=== PATIENT | male | born 1965 | race Caucasian/White ===

== ENCOUNTER 2020-03-10 15:53 | Emergency (ER) | payer MEDICAID, SELFPAY ==
[2020-03-10 15:57] VITALS: BP 133/81; RESP 18; TEMP 36.9; O2SAT 96; BMI 23.0
--- NOTE | 2020-03-10 16:05 | W.ED.GENADLT ---
Documented by User: KENNY Desir 03/10/20 17:04 HPI - General Adult General: Chief complaint: General Medical Stated complaint: LETHARGIC/ DOESN'T FEEL WELL Time Seen by Provider: 03/10/20 16:04 Source: patient Mode of arrival: ambulatory Limitations: no limitations History of Present Illness: HPI narrative: Patient comes in today for complaints of malaise. Patient states that he woke up this morning and he was not feeling well so he drank 2 beers and it did not help him feel any better. Patient does admit that he is a chronic drinker. Patient reports that he does not have much health problems but has had injuries to his back and his left leg. Patient reports that generally when he does not feel well he will drink beer feel better and go on. 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 Patient also reports that he has been bitten by several ticks. Patient appears well. Patient appears in no pain. Patient denies any pain or discomfort. Patient reports that he has had a history of stroke. Associated symptoms: Reports malaise Review of Systems General: Reports: 10 or more systems reviewed and unremarkable except in HPI and below Const: Reports: malaise PFSH ED PFSH: Social History Smoking and tobacco status: current every day smoker Physical Exam Const: COMMON NORMALS: no acute distress and patient oriented x3 GENERAL APPEARANCE: cooperative HENMT: COMMON NORMALS: normocephalic and Normal external nose present HEAD & SCALP: normal to inspection and normocephalic NOSE: Normal external nose present MOUTH: Normal oral and palatal mucosa present Eye: GENERAL EYE: appearance normal, both eyes and all related structures Neck/C-Spine: COMMON NORMALS: full ROM Lymph: LYMPHATIC: no lymphadenopathy noted Chest: COMMONS NORMALS: normal inspection of the chest Resp: COMMON NORMALS: normal respiratory effort EFFORT & INSPECTION: Yes able to speak in complete sentences Cardio: COMMON NORMALS: regular rate and regular rhythm RATE: regular rate RHYTHM: regular rhythm GI: COMMON NORMALS: non-tender : COMMON NORMALS: Yes no CVA tenderness BLADDER/KIDNEY EXAM: Yes no CVA tenderness Back/Pelvis: COMMON NORMALS: no CVA tenderness and thoracic and lumbar spine normal to inspection Extremity: COMMON NORMALS: normal to inspection Neuro: COMMON NORMALS: patient oriented x3 and moves all extremities Psych: COMMON NORMALS: mental status grossly normal and cooperative Skin: COMMON NORMALS: no rashes or lesions noted GENERAL SKIN EXAM: no rashes or lesions noted Course ED course: 1700, reviewed ETIFFANY Owens, agreed to assume care of patient. wjw Vital Signs: Vital signs: Vital Signs Temperature 98.5 F 03/10/20 15:57 Pulse Rate 92 03/10/20 19:06 Respiratory Rate 18 03/10/20 19:06 Blood Pressure 162/95 03/10/20 19:06 Pulse Oximetry 97 03/10/20 19:06 [facility] - General Adult Lab Data: Labs: Lab Results 03/10/20 03/10/20 03/10/20 Range/Units 15:52 15:52 16:36 WBC 6.9 (4.0-10.0) 10^3/ uL RBC 5.04 (4.1-5.3) 10^6/u L Hgb 15.3 (11.7-16.6) g/dL Hct 46.1 (42.0-52.0) % MCV 91.5 (80-94) fL MCH 30.4 (28.0-34.0) pg MCHC 33.2 (30.0-36.0) g/dL RDW 13.1 (12.1-15.1) % Plt Count 299 (130-400) 10^3/c mm MPV 9.3 (7.4-10.4) fL Neut % (Auto) 36.2 % Lymph % (Auto) 44.4 % Brooks % (Auto) 11.1 % Eos % (Auto) 7.2 % Baso % (Auto) 1.0 % Neut # (Auto) 2.5 (1.8-7.7) 10^3/u L Lymph # (Auto) 3.1 (0.8-4.8) 10^3/u L Brooks # (Auto) 0.8 (0.2-0.9) 10^3/u L Eos # (Auto) 0.5 (0.0-0.8) 10^3/u L Baso # (Auto) 0.1 (0.0-0.1) 10^3/u L Nucleated RBC % (a uto) 0 % Nucleated RBCs # 0.0 /100WBC Sodium 139 (136-145) mmol/L Potassium 4.1 (3.5-5.1) mmol/L Chloride 98 (98-107) mmol/L Carbon Dioxide 22 (22-29) mmol/L Anion Gap 23.1 H (5-19) BUN 7 (6-20) mg/dL Creatinine 0.7 (0.7-1.2) mg/dL GFR Calculation 118.4 (90-130) mL/min Glucose 132 H (65-115) mg/dL Calculated Osmolal ity 286 (285-295) mOsm/k g Lactic Acid (0.5-2.2) mmol/L Calcium 9.2 (8.5-10.5) mg/dL Total Bilirubin 0.3 (0.15-1.2) mg/dL AST 71 H (0-40) U/L ALT 51 H (0-41) U/L Alkaline Phosphata se 77 (40-130) IU/L Ammonia (16-60) umol/L Creatine Kinase 336 H* (39-308) U/L Total Protein 8.2 (6.6-8.7) g/dL Albumin 4.6 (3.5-5.2) g/dL Globulin 3.6 (1.3-4.6) g/dL Urine Color Straw (Yellow) Urine Appearance Clear (CLEAR) Urine pH 5 (5-7) Ur Specific Gravit y 1.010 (1.005-1.030) Urine Protein Neg (Negative) Urine Glucose (UA) Norm (Normal) Urine Ketones Negative (Negative) Urine Blood Neg (Negative) Urine Nitrate Negative (Negative) Urine Bilirubin Neg (NEGATIVE) Urine Urobilinogen Norm (Negative) mg/dL Ur Leukocyte Windy ase Negative (Negative) Urine Opiates Scre en (Negative) ng/mL Ur Barbiturates Sc reen (Negative) ng/mL Ur Phencyclidine S crn (Negative) ng/mL Ur Amphetamines Sc reen (Negative) ng/mL U Benzodiazepines Scrn (Negative) ng/mL Urine Cocaine Scre en (Negative) ng/mL U Marijuana (THC) Screen (Negative) ng/mL Ethyl Alcohol 230 H (0-10) mg/dL 03/10/20 03/10/20 03/10/20 Range/Units 16:36 16:55 16:55 WBC (4.0-10.0) 10^3/ uL RBC (4.1-5.3) 10^6/u L Hgb (11.7-16.6) g/dL Hct (42.0-52.0) % MCV (80-94) fL MCH (28.0-34.0) pg MCHC (30.0-36.0) g/dL RDW (12.1-15.1) % Plt Count (130-400) 10^3/c mm MPV (7.4-10.4) fL Neut % (Auto) % Lymph % (Auto) % Brooks % (Auto) % Eos % (Auto) % Baso % (Auto) % Neut # (Auto) (1.8-7.7) 10^3/u L Lymph # (Auto) (0.8-4.8) 10^3/u L Brooks # (Auto) (0.2-0.9) 10^3/u L Eos # (Auto) (0.0-0.8) 10^3/u L Baso # (Auto) (0.0-0.1) 10^3/u L Nucleated RBC % (a uto) % Nucleated RBCs # /100WBC Sodium (136-145) mmol/L Potassium (3.5-5.1) mmol/L Chloride (98-107) mmol/L Carbon Dioxide (22-29) mmol/L Anion Gap (5-19) BUN (6-20) mg/dL Creatinine (0.7-1.2) mg/dL GFR Calculation (90-130) mL/min Glucose (65-115) mg/dL Calculated Osmolal ity (285-295) mOsm/k g Lactic Acid 1.5 (0.5-2.2) mmol/L Calcium (8.5-10.5) mg/dL Total Bilirubin (0.15-1.2) mg/dL AST (0-40) U/L ALT (0-41) U/L Alkaline Phosphata se (40-130) IU/L Ammonia 32 (16-60) umol/L Creatine Kinase (39-308) U/L Total Protein (6.6-8.7) g/dL Albumin (3.5-5.2) g/dL Globulin (1.3-4.6) g/dL Urine Color (Yellow) Urine Appearance (CLEAR) Urine pH (5-7) Ur Specific Gravit y (1.005-1.030) Urine Protein (Negative) Urine Glucose (UA) (Normal) Urine Ketones (Negative) Urine Blood (Negative) Urine Nitrate (Negative) Urine Bilirubin (NEGATIVE) Urine Urobilinogen (Negative) mg/dL Ur Leukocyte Windy ase (Negative) Urine Opiates Scre en Negative (Negative) ng/mL Ur Barbiturates Sc reen Negative (Negative) ng/mL Ur Phencyclidine S crn Negative (Negative) ng/mL Ur Amphetamines Sc reen Negative (Negative) ng/mL U Benzodiazepines Scrn Negative (Negative) ng/mL Urine Cocaine Scre en Negative (Negative) ng/mL U Marijuana (THC) Screen Positive H (Negative) ng/mL Ethyl Alcohol (0-10) mg/dL Discharge Plan Discharge Patient Disposition: Home, Self-Care Clinical Impression: Malaise and fatigue, Acute dehydration, Chronic alcohol abuse Acute alcohol intoxication Qualifiers: Complication of substance-induced condition: uncomplicated Qualified Code(s): F10.920 - Alcohol use, unspecified with intoxication, uncomplicated Condition: Stable Prescriptions: No Action lisinopril 20 mg Tablet 20 mg PO DAILY RF: 0 ibuprofen 200 mg Tablet 800 mg PO PRN RF: 0 Discharge Orders: Discharge Order (Routine); Ordered 03/10/20 Ordered By: Yessi Rodgers Referrals: Neeraj Benito DO [Primary Care Provider] - Activity Restrictions/Additional Instructions: Please continue to push fluids over the next 48 hours. If you are ready, please seek help for the chronic alcohol abuse. You may return to the emergency department at anytime if you begin feeling worse or began having new/concerning symptoms. Discharge Date/Time: 03/10/20 19:08 Sign Out Sign Out Data: Patient Sign Out occurred on 03/10/20 at 17:07. Patient's care was discussed, and care was transferred from Сергей Tapia to JUVE Mensah. Sign Out Comment: awaiting labs, probably will go home, chronic alcoholic. wjw Last updated by Сергей Tapia FNP at 03/10/20 17:01 Coding Level of Care Code ED Federal Judge for Chg Fwd Exam Comprehensive Documented by User: JUVE Mensah 03/10/20 22:02 HPI - General Adult General: Chief complaint: General Medical Stated complaint: LETHARGIC/ DOESN'T FEEL WELL Time Seen by Provider: 03/10/20 16:04 PFSH ED PFSH: Social History Smoking and tobacco status: current every day smoker Physical Exam Const: COMMON NORMALS: no acute distress, average body habitus, patient oriented x3, no limitations and alert GENERAL APPEARANCE: cooperative ORIENTATION/CONSCIOUSNESS: Yes oriented to person, Yes oriented to place and Yes oriented to time HENMT: COMMON NORMALS: normocephalic and atraumatic HEAD & SCALP: normocephalic and atraumatic Resp: COMMON NORMALS: normal respiratory effort and clear to auscultation bilaterally AUSCULTATION: clear to auscultation bilaterally Cardio: COMMON NORMALS: regular rate and regular rhythm RATE: regular rate RHYTHM: regular rhythm GI: COMMON NORMALS: Normal to inspection, nondistended, normoactive bowel sounds present, Soft to palpation, non-tender, No hepatosplenomegaly present and no masses PALPATION: Yes Soft to palpation and Yes No hepatosplenomegaly present Extremity: COMMON NORMALS: normal to inspection, full ROM, capillary refill normal, no clubbing, cyanosis or edema, no calf tenderness and no pedal edema Neuro: ALINA COMA SCALE: document GCS findings [place] coma scale eye opening: Spontaneous Alina coma scale verbal response: Orientated Alina coma scale motor response: Obey commands [place] coma scale total score: 15 COMMON NORMALS: patient oriented x3, CN's II-XII intact bilaterally, moves all extremities, no focal motor deficits, no sensory deficits noted and gait normal SENSORIUM/ORIENTATION: Yes alert, Yes oriented to person, Yes oriented to place and Yes oriented to time Course Vital Signs: Vital signs: Vital Signs Temperature 98.5 F 03/10/20 15:57 Pulse Rate 92 03/10/20 19:06 Respiratory Rate 18 03/10/20 19:06 Blood Pressure 162/95 03/10/20 19:06 Pulse Oximetry 97 03/10/20 19:06 MDM - General Adult MDM Narrative: Medical decision making narrative: Assumed patient from KENNY Crews. Patient presents to the ED today with a complaint of overall not feeling well. He states he woke up today feeling like this. Patient is an every day fairly heavy drinker. He has no specific complaints. He does not complain of chest pain, shortness of breath, difficulty breathing he has no abdominal pain, nausea, vomiting. 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 Patient's vital signs have been completely stable since arrival. CBC is normal. He has an anion gap of 23.1. He has mildly elevated LFTs which are consistent with his chronic alcohol use. Patient's CPK is mildly elevated at 336. He was given 2 L of fluids for this. UA is normal. UDS positive for marijuana. Patient's alcohol was 230 however he is clinically of sound mind and answering questions appropriately. Patient's EKG shows sinus rhythm without any form of ischemic changes. CXR showing no changes from previous films. Patient is stable for discharge with follow-up with primary care. Return to ED precautions given. By end of visit patient tells me he feels much better. Was requesting food. Was able to eat before calling a taxi home. Lab Data: Labs: Lab Results 03/10/20 03/10/20 03/10/20 Range/Units 15:52 15:52 16:36 WBC 6.9 (4.0-10.0) 10^3/ uL RBC 5.04 (4.1-5.3) 10^6/u L Hgb 15.3 (11.7-16.6) g/dL Hct 46.1 (42.0-52.0) % MCV 91.5 (80-94) fL MCH 30.4 (28.0-34.0) pg MCHC 33.2 (30.0-36.0) g/dL RDW 13.1 (12.1-15.1) % Plt Count 299 (130-400) 10^3/c mm MPV 9.3 (7.4-10.4) fL Neut % (Auto) 36.2 % Lymph % (Auto) 44.4 % Brooks % (Auto) 11.1 % Eos % (Auto) 7.2 % Baso % (Auto) 1.0 % Neut # (Auto) 2.5 (1.8-7.7) 10^3/u L Lymph # (Auto) 3.1 (0.8-4.8) 10^3/u L Brooks # (Auto) 0.8 (0.2-0.9) 10^3/u L Eos # (Auto) 0.5 (0.0-0.8) 10^3/u L Baso # (Auto) 0.1 (0.0-0.1) 10^3/u L Nucleated RBC % (a uto) 0 % Nucleated RBCs # 0.0 /100WBC Sodium 139 (136-145) mmol/L Potassium 4.1 (3.5-5.1) mmol/L Chloride 98 (98-107) mmol/L Carbon Dioxide 22 (22-29) mmol/L Anion Gap 23.1 H (5-19) BUN 7 (6-20) mg/dL Creatinine 0.7 (0.7-1.2) mg/dL GFR Calculation 118.4 (90-130) mL/min Glucose 132 H (65-115) mg/dL Calculated Osmolal ity 286 (285-295) mOsm/k g Lactic Acid (0.5-2.2) mmol/L Calcium 9.2 (8.5-10.5) mg/dL Total Bilirubin 0.3 (0.15-1.2) mg/dL AST 71 H (0-40) U/L ALT 51 H (0-41) U/L Alkaline Phosphata se 77 (40-130) IU/L Ammonia (16-60) umol/L Creatine Kinase 336 H* (39-308) U/L Total Protein 8.2 (6.6-8.7) g/dL Albumin 4.6 (3.5-5.2) g/dL Globulin 3.6 (1.3-4.6) g/dL Urine Color Straw (Yellow) Urine Appearance Clear (CLEAR) Urine pH 5 (5-7) Ur Specific Gravit y 1.010 (1.005-1.030) Urine Protein Neg (Negative) Urine Glucose (UA) Norm (Normal) Urine Ketones Negative (Negative) Urine Blood Neg (Negative) Urine Nitrate Negative (Negative) Urine Bilirubin Neg (NEGATIVE) Urine Urobilinogen Norm (Negative) mg/dL Ur Leukocyte Windy ase Negative (Negative) Urine Opiates Scre en (Negative) ng/mL Ur Barbiturates Sc reen (Negative) ng/mL Ur Phencyclidine S crn (Negative) ng/mL Ur Amphetamines Sc reen (Negative) ng/mL U Benzodiazepines Scrn (Negative) ng/mL Urine Cocaine Scre en (Negative) ng/mL U Marijuana (THC) Screen (Negative) ng/mL Ethyl Alcohol 230 H (0-10) mg/dL 03/10/20 03/10/20 03/10/20 Range/Units 16:36 16:55 16:55 WBC (4.0-10.0) 10^3/ uL RBC (4.1-5.3) 10^6/u L Hgb (11.7-16.6) g/dL Hct (42.0-52.0) % MCV (80-94) fL MCH (28.0-34.0) pg MCHC (30.0-36.0) g/dL RDW (12.1-15.1) % Plt Count (130-400) 10^3/c mm MPV (7.4-10.4) fL Neut % (Auto) % Lymph % (Auto) % Brooks % (Auto) % Eos % (Auto) % Baso % (Auto) % Neut # (Auto) (1.8-7.7) 10^3/u L Lymph # (Auto) (0.8-4.8) 10^3/u L Brooks # (Auto) (0.2-0.9) 10^3/u L Eos # (Auto) (0.0-0.8) 10^3/u L Baso # (Auto) (0.0-0.1) 10^3/u L Nucleated RBC % (a uto) % Nucleated RBCs # /100WBC Sodium (136-145) mmol/L Potassium (3.5-5.1) mmol/L Chloride (98-107) mmol/L Carbon Dioxide (22-29) mmol/L Anion Gap (5-19) BUN (6-20) mg/dL Creatinine (0.7-1.2) mg/dL GFR Calculation (90-130) mL/min Glucose (65-115) mg/dL Calculated Osmolal ity (285-295) mOsm/k g Lactic Acid 1.5 (0.5-2.2) mmol/L Calcium (8.5-10.5) mg/dL Total Bilirubin (0.15-1.2) mg/dL AST (0-40) U/L ALT (0-41) U/L Alkaline Phosphata se (40-130) IU/L Ammonia 32 (16-60) umol/L Creatine Kinase (39-308) U/L Total Protein (6.6-8.7) g/dL Albumin (3.5-5.2) g/dL Globulin (1.3-4.6) g/dL Urine Color (Yellow) Urine Appearance (CLEAR) Urine pH (5-7) Ur Specific Gravit y (1.005-1.030) Urine Protein (Negative) Urine Glucose (UA) (Normal) Urine Ketones (Negative) Urine Blood (Negative) Urine Nitrate (Negative) Urine Bilirubin (NEGATIVE) Urine Urobilinogen (Negative) mg/dL Ur Leukocyte Windy ase (Negative) Urine Opiates Scre en Negative (Negative) ng/mL Ur Barbiturates Sc reen Negative (Negative) ng/mL Ur Phencyclidine S crn Negative (Negative) ng/mL Ur Amphetamines Sc reen Negative (Negative) ng/mL U Benzodiazepines Scrn Negative (Negative) ng/mL Urine Cocaine Scre en Negative (Negative) ng/mL U Marijuana (THC) Screen Positive H (Negative) ng/mL Ethyl Alcohol (0-10) mg/dL Imaging Data^: CXR: My impression: NAD-no changes from previous films Discharge Plan Discharge Patient Disposition: Home, Self-Care Clinical Impression: Malaise and fatigue, Acute dehydration, Chronic alcohol abuse Acute alcohol intoxication Qualifiers: Complication of substance-induced condition: uncomplicated Qualified Code(s): F10.920 - Alcohol use, unspecified with intoxication, uncomplicated Condition: Stable Prescriptions: No Action lisinopril 20 mg Tablet 20 mg PO DAILY RF: 0 ibuprofen 200 mg Tablet 800 mg PO PRN RF: 0 Discharge Orders: Discharge Order (Routine); Ordered 03/10/20 Ordered By: Yessi Rodgers Referrals: Neeraj Benito, [Primary Care Provider] - Activity Restrictions/Additional Instructions: Please continue to push fluids over the next 48 hours. If you are ready, please seek help for the chronic alcohol abuse. You may return to the emergency department at anytime if you begin feeling worse or began having new/concerning symptoms. Discharge Date/Time: 03/10/20 19:08 Sign Out Sign Out Data: Patient Sign Out occurred on 03/10/20 at 17:07. Patient's care was discussed, and care was transferred from Сергей Tapia to JUVE Mensah. Sign Out Comment: awaiting labs, probably will go home, chronic alcoholic. wjw Last updated by Сергей Tapia FNP at 03/10/20 17:01 Coding Level of Care Code ED Federal Judge for Chg Fwd Exam Comprehensive
[2020-03-10 16:09] VITALS: PULSE 99; RESP 16; O2SAT 96
--- NOTE | 2020-03-10 16:16 | XR_ITS ---
WS: [id number] PORTABLE CHEST HISTORY: malaise COMPARISON: 12/09/2017 Marked pulmonary hyperinflation with emphysema. No pneumonia. No pulmonary nodule. No pleural effusio n or pneumothorax. Cardiac size: Normal. Mediastinum/Aorta: Normal mediastinum. No osseous abnormality seen. XR/XR chest 1V portable [id number] IMPRESSION: Severe chronic emphysema. No pneumonia.
[2020-03-10 16:27] LABS: Basophils # 0.1 10^3/uL (0.0-0.1); Eosinophils # 0.5 10^3/uL (0.0-0.8); Eosinophils % 7.2 %; Hematocrit 46.1 % (42.0-52.0); Hemoglobin 15.3 g/dL (11.7-16.6); Lymphocytes # 3.1 10^3/uL (0.8-4.8); Lymphocytes % 44.4 %; Mean Corpuscular HGB Conc 33.2 g/dL (30.0-36.0); Mean Corpuscular Hemoglobin 30.4 pg (28.0-34.0); Mean Corpuscular Volume 91.5 fL (80-94); Mean Platelet Volume 9.3 fL (7.4-10.4); Monocytes # 0.8 10^3/uL (0.2-0.9); Monocytes % 11.1 %; Neutrophils # 2.5 10^3/uL (1.8-7.7); Neutrophils % 36.2 %; Nucleated Red Blood Cells % 0 %; Platelet Count 299 10^3/cmm (130-400); Red Blood Count 5.04 10^6/uL (4.1-5.3); Red Cell Distribution Width 13.1 % (12.1-15.1); White Blood Count 6.9 10^3/uL (4.0-10.0)
[2020-03-10 16:52] LABS: Alanine Aminotransferase 51 U/L (0-41); Albumin Level 4.6 g/dL (3.5-5.2); Alcohol Level 230 mg/dL (0-10); Alkaline Phosphatase 77 IU/L (40-130); Anion Gap 23.1 (5-19); Aspartate Amino Transferase 71 U/L (0-40); Blood Urea Nitrogen 7 mg/dL (6-20); Calcium 9.2 mg/dL (8.5-10.5); Carbon Dioxide 22 mmol/L (22-29); Chloride 98 mmol/L (98-107); Creatinine Clr Calc Pharmacy 135.1505; Globulin 3.6 g/dL (1.3-4.6); Glomerular Filtration Rate 118.4 mL/min (90-130); Glucose 132 mg/dL (65-115); Osmolality Calculated 286 mOsm/kg (285-295); Potassium 4.1 mmol/L (3.5-5.1); Sodium 139 mmol/L (136-145); Total Bilirubin 0.3 mg/dL (0.15-1.2); Total Protein 8.2 g/dL (6.6-8.7)
[2020-03-10 17:01] VITALS: BP 158/106; PULSE 84; RESP 17; O2SAT 97
[2020-03-10 17:06] LABS: Add Urine Microscopic? NO
[2020-03-10 17:18] LABS: Ammonia 32 umol/L (16-60); Lactic Sepsis W/Reflex 1.5 mmol/L (0.5-2.2)
[2020-03-10] MEDS: sodium chloride 0.9% 1,000 ML 999 ML IV ×2 (17:20→18:17)
[2020-03-10] MEDS: nicotine 21 mg Patch 1 PATCH TRANSDERMA (17:20)
[2020-03-10 17:28] LABS: Bilirubin Urine Neg (NEGATIVE); Blood Urine Neg (Negative); Glucose Urine UA Norm (Normal); Ketones Urine Negative (Negative); Leukocyte Esterase Urine Negative (Negative); Nitrate Urine Negative (Negative); Protein Urine Neg (Negative); Urine Appearance Clear (CLEAR); Urine Color Straw (Yellow); Urobilinogen Urine Norm (Negative); pH Urine 5 (5-7)
[2020-03-10 17:30] LABS: Creatine Phosphokinase 336 U/L (39-308)
--- NOTE | 2020-03-10 17:36 | ECG_ITS ---
[facility] Test Date: 2020-03-10 Pat Name: Hayes Cartagena Department: Room: Gender: Male [employer]: : [id number] Requested By: Yessi Rodgers Order Number: [id number] Javi MD: Laura Billings M.D. Measurements Intervals Nancy Rate: 81 P: 75 CA: 142 QRS: 90 QRSD: 105 T: 70 QT: 387 QTc: 452 Interpretive Statements SINUS RHYTHM Compared to ECG 02/28/2017 14:37:04 Sinus tachycardia no longer present Atrial abnormality no longer present Electronically Signed On 03-10-2020 21:15:02 CDT by Laura Billings M.D. [id number]
[2020-03-10 17:37] LABS: Amphetamines Screen Urine Negative (Negative); Barbiturates Screen Urine Negative (Negative); Benzodiazepines Screen Urine Negative (Negative); Cocaine Screen Urine Negative (Negative); Opiate Screen Urine Negative (Negative); PCP Screen Urine Negative (Negative); THC Screen Urine Positive (Negative)
[2020-03-10] MEDS: LORazepam 2 mg/mL INJ 1 mL 1 MG IVP (18:17)
[2020-03-10] MEDS: ondansetron 2 mg/ML SDV 2 mL 4 MG IVP (18:17)
--- NOTE | 2020-03-10 18:58 | ED_ITS ---
HPI - Extremity Injury (Lower) General: Chief Complaint: General Medical Stated Complaint: LETHARGIC/ DOESN'T FEEL WELL Time Seen by Provider: 03/10/20 16:04 Source: patient Mode of arrival: ambulatory Limitations: no limitations PFSH ED PFSH: Social History Smoking and tobacco status: current every day smoker Course Vital Signs: Vital signs: Vital Signs Temperature 98.5 F 03/10/20 15:57 Pulse Rate 84 03/10/20 17:01 Respiratory Rate 17 03/10/20 17:01 Blood Pressure 158/106 03/10/20 17:01 Pulse Oximetry 97 03/10/20 17:01 MDM - Extremity Injury (Lower) Lab Data: Labs: Lab Results 03/10/20 03/10/20 03/10/20 Range/Units 15:52 15:52 16:36 WBC 6.9 (4.0-10.0) 10^3/ uL RBC 5.04 (4.1-5.3) 10^6/u L Hgb 15.3 (11.7-16.6) g/dL Hct 46.1 (42.0-52.0) % MCV 91.5 (80-94) fL MCH 30.4 (28.0-34.0) pg MCHC 33.2 (30.0-36.0) g/dL RDW 13.1 (12.1-15.1) % Plt Count 299 (130-400) 10^3/c mm MPV 9.3 (7.4-10.4) fL Neut % (Auto) 36.2 % Lymph % (Auto) 44.4 % Nicholas % (Auto) 11.1 % Eos % (Auto) 7.2 % Baso % (Auto) 1.0 % Neut # (Auto) 2.5 (1.8-7.7) 10^3/u L Lymph # (Auto) 3.1 (0.8-4.8) 10^3/u L Nicholas # (Auto) 0.8 (0.2-0.9) 10^3/u L Eos # (Auto) 0.5 (0.0-0.8) 10^3/u L Baso # (Auto) 0.1 (0.0-0.1) 10^3/u L Nucleated RBC % (a uto) 0 % Nucleated RBCs # 0.0 /100WBC Sodium 139 (136-145) mmol/L Potassium 4.1 (3.5-5.1) mmol/L Chloride 98 (98-107) mmol/L Carbon Dioxide 22 (22-29) mmol/L Anion Gap 23.1 H (5-19) BUN 7 (6-20) mg/dL Creatinine 0.7 (0.7-1.2) mg/dL GFR Calculation 118.4 (90-130) mL/min Glucose 132 H (65-115) mg/dL Calculated Osmolal ity 286 (285-295) mOsm/k g Lactic Acid (0.5-2.2) mmol/L Calcium 9.2 (8.5-10.5) mg/dL Total Bilirubin 0.3 (0.15-1.2) mg/dL AST 71 H (0-40) U/L ALT 51 H (0-41) U/L Alkaline Phosphata se 77 (40-130) IU/L Ammonia (16-60) umol/L Creatine Kinase 336 H* (39-308) U/L Total Protein 8.2 (6.6-8.7) g/dL Albumin 4.6 (3.5-5.2) g/dL Globulin 3.6 (1.3-4.6) g/dL Urine Color Straw (Yellow) Urine Appearance Clear (CLEAR) Urine pH 5 (5-7) Ur Specific Gravit y 1.010 (1.005-1.030) Urine Protein Neg (Negative) Urine Glucose (UA) Norm (Normal) Urine Ketones Negative (Negative) Urine Blood Neg (Negative) Urine Nitrate Negative (Negative) Urine Bilirubin Neg (NEGATIVE) Urine Urobilinogen Norm (Negative) mg/dL Ur Leukocyte Windy ase Negative (Negative) Urine Opiates Scre en (Negative) ng/mL Ur Barbiturates Sc reen (Negative) ng/mL Ur Phencyclidine S crn (Negative) ng/mL Ur Amphetamines Sc reen (Negative) ng/mL U Benzodiazepines Scrn (Negative) ng/mL Urine Cocaine Scre en (Negative) ng/mL U Marijuana (THC) Screen (Negative) ng/mL Ethyl Alcohol 230 H (0-10) mg/dL 03/10/20 03/10/20 03/10/20 Range/Units 16:36 16:55 16:55 WBC (4.0-10.0) 10^3/ uL RBC (4.1-5.3) 10^6/u L Hgb (11.7-16.6) g/dL Hct (42.0-52.0) % MCV (80-94) fL MCH (28.0-34.0) pg MCHC (30.0-36.0) g/dL RDW (12.1-15.1) % Plt Count (130-400) 10^3/c mm MPV (7.4-10.4) fL Neut % (Auto) % Lymph % (Auto) % Nicholas % (Auto) % Eos % (Auto) % Baso % (Auto) % Neut # (Auto) (1.8-7.7) 10^3/u L Lymph # (Auto) (0.8-4.8) 10^3/u L Nicholas # (Auto) (0.2-0.9) 10^3/u L Eos # (Auto) (0.0-0.8) 10^3/u L Baso # (Auto) (0.0-0.1) 10^3/u L Nucleated RBC % (a uto) % Nucleated RBCs # /100WBC Sodium (136-145) mmol/L Potassium (3.5-5.1) mmol/L Chloride (98-107) mmol/L Carbon Dioxide (22-29) mmol/L Anion Gap (5-19) BUN (6-20) mg/dL Creatinine (0.7-1.2) mg/dL GFR Calculation (90-130) mL/min Glucose (65-115) mg/dL Calculated Osmolal ity (285-295) mOsm/k g Lactic Acid 1.5 (0.5-2.2) mmol/L Calcium (8.5-10.5) mg/dL Total Bilirubin (0.15-1.2) mg/dL AST (0-40) U/L ALT (0-41) U/L Alkaline Phosphata se (40-130) IU/L Ammonia 32 (16-60) umol/L Creatine Kinase (39-308) U/L Total Protein (6.6-8.7) g/dL Albumin (3.5-5.2) g/dL Globulin (1.3-4.6) g/dL Urine Color (Yellow) Urine Appearance (CLEAR) Urine pH (5-7) Ur Specific Gravit y (1.005-1.030) Urine Protein (Negative) Urine Glucose (UA) (Normal) Urine Ketones (Negative) Urine Blood (Negative) Urine Nitrate (Negative) Urine Bilirubin (NEGATIVE) Urine Urobilinogen (Negative) mg/dL Ur Leukocyte Windy ase (Negative) Urine Opiates Scre en Negative (Negative) ng/mL Ur Barbiturates Sc reen Negative (Negative) ng/mL Ur Phencyclidine S crn Negative (Negative) ng/mL Ur Amphetamines Sc reen Negative (Negative) ng/mL U Benzodiazepines Scrn Negative (Negative) ng/mL Urine Cocaine Scre en Negative (Negative) ng/mL U Marijuana (THC) Screen Positive H (Negative) ng/mL Ethyl Alcohol (0-10) mg/dL Discharge Plan Discharge Patient Disposition: Home, Self-Care Clinical Impression: Malaise and fatigue, Acute dehydration, Chronic alcohol abuse Acute alcohol intoxication Qualifiers: Complication of substance-induced condition: uncomplicated Qualified Code(s): F10.920 - Alcohol use, unspecified with intoxication, uncomplicated Condition: Stable Prescriptions: No Action lisinopril 20 mg Tablet 20 mg PO DAILY RF: 0 ibuprofen 200 mg Tablet 800 mg PO PRN RF: 0 Discharge Orders: Discharge Order (Routine); Ordered 03/10/20 Ordered By: Yessi Rodgers Referrals: Neeraj Benito, [Primary Care Provider] - Activity Restrictions/Additional Instructions: Please continue to push fluids over the next 48 hours. If you are ready, please seek help for the chronic alcohol abuse. You may return to the emergency department at anytime if you begin feeling worse or began having new/concerning symptoms. Sign Out Sign Out Data: Patient Sign Out occurred on 03/10/20 at 17:07. Patient's care was discussed, an d care was transferred from Сергей Tapia to JUVE Mensah. Sign Out Comment: awaiting labs, probably will go home, chronic alcoholic. [email or web address] Last updated by Сергей Tapia FNP at 03/10/20 17:01 Coding Level of Care Code ED Application Development Liaison for Bren Arevalo
[2020-03-10 19:06] VITALS: BP 162/95; PULSE 92; RESP 18; O2SAT 97
[2020-03-14 11:56] LABS: Lyme AB Screen <0.90 index
[2020-03-15 17:40] LABS: E. Chaffeensis AB IGG <1:64; E. Chaffeensis AB IGM <1:20
[2020-03-16 16:20] LABS: RMSF IGG DETECTED; RMSF IGM NOT DETECTED
== END 2020-03-10 19:08 | disposition home or self-care (01) ==
PROVIDERS: Nurse Practitioner Family; Emergency Provider Physician Assistant; PCP Family Medicine
DX: R53.81 Other malaise (principal); E86.0 Dehydration; F10.120 Alcohol abuse with intoxication, uncomplicated; Y90.9 Presence of alcohol in blood, level not specified; F17.210 Nicotine dependence, cigarettes, uncomplicated
CPT/HCPCS: 12345; 36415; 71045; 80053; 80306; 80307; 81003; 82140; 82550; 83605; 85025; 86618; 86666; 86757; 93005; 96361; 96374; 96375; 99284; A9270; J2060; J2405; J7030

== ENCOUNTER 2020-04-21 11:59 | Inpatient (IN) | payer MEDICAID, SELFPAY ==
[2020-04-21 12:05] VITALS: BP 158/120; PULSE 119; RESP 18; TEMP 37.1; O2SAT 96; BMI 25.7
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
[2020-04-21 12:46] LABS: Basophils # 0.1 10^3/uL (0.0-0.1); Basophils % 1.2 %; Eosinophils # 0.3 10^3/uL (0.0-0.8); Eosinophils % 4.3 %; Hematocrit 45.4 % (42.0-52.0); Hemoglobin 15.2 g/dL (11.7-16.6); Lymphocytes # 2.3 10^3/uL (0.8-4.8); Lymphocytes % 38.2 %; Mean Corpuscular HGB Conc 33.5 g/dL (30.0-36.0); Mean Corpuscular Hemoglobin 29.9 pg (28.0-34.0); Mean Corpuscular Volume 89.4 fL (80-94); Mean Platelet Volume 8.8 fL (7.4-10.4); Monocytes # 0.7 10^3/uL (0.2-0.9); Monocytes % 10.8 %; Neutrophils # 2.73 10^3/uL (1.8-7.7); Neutrophils % 45.2 %; Nucleated Red Blood Cells % 0 %; Platelet Count 357 10^3/cmm (130-400); Red Blood Count 5.08 10^6/uL (4.1-5.3); Red Cell Distribution Width 14.6 % (12.1-15.1)
[2020-04-21 13:00] LABS: Amphetamines Screen Urine Negative (Negative); Barbiturates Screen Urine Negative (Negative); Benzodiazepines Screen Urine Negative (Negative); Cocaine Screen Urine Negative (Negative); Opiate Screen Urine Negative (Negative); PCP Screen Urine Negative (Negative); THC Screen Urine Positive (Negative)
[2020-04-21] MEDS: LORazepam 2 mg/mL INJ 1 mL IM (13:20)
[2020-04-21] MEDS: nicotine 21 mg Patch 1 PATCH TRANSDERMA (13:20)
[2020-04-21 13:26] LABS: Alanine Aminotransferase 37 U/L (0-41); Albumin Level 4.7 g/dL (3.5-5.2); Alkaline Phosphatase 79 IU/L (40-130); Aspartate Amino Transferase 42 U/L (0-40); Blood Urea Nitrogen 10 mg/dL (6-20); Carbon Dioxide 23 mmol/L (22-29); Chloride 102 mmol/L (98-107); Globulin 3.9 g/dL (1.3-4.6); Glomerular Filtration Rate 101.1 mL/min (90-130); Glucose 107 mg/dL (65-115); Osmolality Calculated 284 mOsm/kg (285-295); Sodium 139 mmol/L (136-145); Total Bilirubin 0.4 mg/dL (0.15-1.2); Total Protein 8.6 g/dL (6.6-8.7)
[2020-04-21 13:35] VITALS: BP 176/113; PULSE 112; RESP 18; O2SAT 98
[2020-04-21 13:52] VITALS: BP 154/105; PULSE 112; RESP 18; TEMP 36.9; O2SAT 97
[2020-04-21 13:56] LABS: Acetaminophen < 5.0 ug/mL (10-30); Salicylate < 0.3 mg/dL (3-10)
[2020-04-21 13:58] LABS: Alcohol Level 325 mg/dL (0-10)
[2020-04-21] MEDS: ondansetron 4 MG Tablet PO ×4 (14:42→20:10)
[2020-04-21 14:44] VITALS: BP 129/85; RESP 18
[2020-04-21] MEDS: lisinopril 20 mg Tablet PO (14:52)
[2020-04-21] MEDS: nicotine 2 mg Gum BUCCAL ×2 (17:03→20:10)
[2020-04-21] MEDS: acetaminophen 325 mg Tablet 650 MG PO (17:55)
[2020-04-21] MEDS: hyDROXYzine 25 mg Capsule 50 MG PO (20:10)
[2020-04-21] MEDS: LORazepam 1 mg Tablet PO (20:10)
[2020-04-21] MEDS: trazodone 50 mg Tablet 100 MG PO (20:11)
--- NOTE | 2020-04-21 20:43 | PC.NURSE ---
Left great toe and first toe painful and appear bruised. The patient does not know how the toes were injured. Received Tylenol for the pain. Also given cold pack.
[2020-04-21 21:00] VITALS: BP 117/65; PULSE 105; RESP 19; TEMP 37.2; O2SAT 94
[2020-04-22] MEDS: acetaminophen 325 mg Tablet 650 MG PO ×2 (05:13→15:28)
[2020-04-22] MEDS: ondansetron 4 MG Tablet PO (05:15)
[2020-04-22 06:00] VITALS: BP 118/85; PULSE 127; RESP 16; TEMP 36.9; O2SAT 94
[2020-04-22] MEDS: multivitamin therapeutic Tablet 1 TAB PO (08:30)
[2020-04-22] MEDS: lisinopril 20 mg Tablet PO (08:30)
[2020-04-22] MEDS: LORazepam 1 mg Tablet PO (08:30)
[2020-04-22] MEDS: folic acid 1 mg Tablet PO (08:30)
[2020-04-22] MEDS: thiamine 100 mg Tablet PO (08:30)
[2020-04-22] MEDS: nicotine 21 mg Patch 1 PATCH TRANSDERMA (08:35)
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
[2020-04-22] MEDS: chlordiazePOXIDE 10 mg Capsule PO ×4 (10:44→20:25)
[2020-04-22 14:00] VITALS: BP 130/73; PULSE 93; RESP 18; TEMP 37.3; O2SAT 96
--- NOTE | 2020-04-22 18:54 | PC.RESP ---
SMOKING CESSATION INFORMATION SENT TO PATIENT.
[2020-04-22] MEDS: LORazepam 2 mg Tablet PO (20:25)
[2020-04-22] MEDS: PARoxetine 20 mg Tablet PO (20:25)
[2020-04-22] MEDS: trazodone 50 mg Tablet 200 MG PO (20:26)
--- NOTE | 2020-04-22 20:27 | PC.NURSE ---
PRN ATIVAN ADMINISTERED ATIVAN 2 MG PO PER CIWA PROTOCOL. CIWA SCORE 12. WILL MONITOR FOR MEDICATION EFFECTIVENESS.
[2020-04-22 22:00] VITALS: BP 136/81; PULSE 71; RESP 20; TEMP 37; O2SAT 98
[2020-04-23] MEDS: nicotine 2 mg Gum BUCCAL ×2 (05:16→23:10)
[2020-04-23] MEDS: acetaminophen 325 mg Tablet 650 MG PO ×4 (05:16→20:50)
[2020-04-23] MEDS: LORazepam 2 mg Tablet PO ×2 (05:16→22:01)
[2020-04-23] MEDS: ondansetron 4 MG Tablet PO (05:16)
[2020-04-23] MEDS: hyDROXYzine 25 mg Capsule 50 MG PO ×2 (05:17→23:28)
[2020-04-23 06:00] VITALS: BP 121/66; PULSE 124; RESP 22; TEMP 36.6; O2SAT 96
--- NOTE | 2020-04-23 06:28 | XRR_ITS ---
PROCEDURE INFORMATION: Exam: XR Right Foot Exam date and time: 04/23/2020 6:51 AM Age: 55 years old Clinical indication: Patient HX: Right foot pain x 4 days, no known injury; Additional info: R/O fracture TECHNIQUE: Imaging protocol: XR Right foot. Views: 1 or 2 views. COMPARISON: No relevant prior studies available. FINDINGS: Bones/joints: Normal. No fracture. Soft tissues: Normal. XR/XR foot RT 2V [id number] IMPRESSION: No acute findings.
[2020-04-23] MEDS: nicotine 21 mg Patch 1 PATCH TRANSDERMA (08:34)
[2020-04-23] MEDS: multivitamin therapeutic Tablet 1 TAB PO (08:36)
[2020-04-23] MEDS: chlordiazePOXIDE 10 mg Capsule PO ×4 (08:36→20:47)
[2020-04-23] MEDS: folic acid 1 mg Tablet PO (08:36)
[2020-04-23] MEDS: lisinopril 20 mg Tablet PO (08:36)
[2020-04-23] MEDS: thiamine 100 mg Tablet PO (08:37)
--- NOTE | 2020-04-23 10:41 | P.PN_ITS ---
Subjective NPU Subjective: Interval history: My foot really hurts. I am not sure where I can go from here. Mental Status Exam MSE Comments: Mental Status Exam: The patient appears in minimal distress. Eye contact is improved. Appearance: hygiene is poor; no gross neurological deficits., gait is unremarkable; AIMS=0 Speech: Speech is of normal rate and rhythm and easily understood. Thought processes: Thought processes are abstract. Judgment is adequate for safety. Associations: intact Psychotic processes: There is no indication of guarding or paranoia. There is no attention to the internal stimuli. Auditory and visual hallucinations are denied. Judgment: Insight is fair. Problem solving skills are adequate for safety. Orientation: The patient is oriented to person, place time and situation. Memory: no deficits noted in immediate, intermediate, or remote spheres. Attention: The patient is alert and interpersonally engaged. Language: Verbalizations are coherent. Fund of knowledge: Fund of knowledge is adequate. Affect/Mood: Affect is consistent with a depressed mood. pt denies suicidal ideation Affective range appropriate. Psychosis: perception unimpaired except through cognitive distortion; reality testing intact. Behavior: Patient Behavior: Cooperative Speech Pattern: Clear Vitals/I&O/Wt Last Vital Signs Temp 97.8 F 04/23/20 06:00 Pulse 124 H 04/23/20 06:00 Resp 22 H 04/23/20 06:00 BP 121/66 04/23/20 06:00 Pulse Ox 96 04/23/20 06:00 Weight last 48 hrs Weight 86.183 kg Data NPU : 04/21/20 12:27 04/21/20 12:27 A&P Additional A&P Information Diagnoses: Major depression?single episode, moderate severity Alcohol intoxication Alcohol dependence Alcohol withdrawal Assessment: Zackery Cartagena is an alcoholic with a current alcohol problem. His mood disorder is likely secondary to his alcohol use disorder. He would benefit of by establishing himself to be sober over a significant period of time. This will require his participation in a formalized rehabilitation program whether inpatient or outpatient. The plan at this time is to get him through the withdrawal. And then assess which type of rehabilitation program in which he will participate. Treatment plan: Due to the psychiatric conditions and treatment listed in the Assessment and Plan - the patient requires continued hospitalization. Will provide a safe and therapeutic environment for patient.. Will continue inpatient treatment to allow for medication adjustment and monitoring. Will continue q15 min safety checks. Patient will be admitted to the adult psychiatric unit and entered into the full array of individual and group therapies as part of that unit protocol. They will be provided 24-hour access to trained psychiatric nursing care and monitoring. Potential benefits and side effects of medications were discussed as well as the time course of expected response to medication changes. Patient is placed on the [facility] alcohol withdrawal protocol. Paxil 20 mg at bedtime will be provided for depression. Hospital day #3: Patient reports that he is tolerating alcohol withdrawal. He is trying to develop plans following discharge. He continues to consider the possibility of rehab but that is only 1 of many choices he may make. He feels that in 2 or 3 met more days he will be through the withdrawal period and will be able to make an appropriate assessment. Plan: Continue weaning from chlordiazepoxide on scheduled dose. X-ray of right foot is pending. Monitor patient's mood, sleep, appetite, and behavior closely. Encourage patient to participate in individual and group therapeutic sessions on the gaines. Estimated length of stay 5 days Involuntary Hold Information 96 Hour Hold: 96 Hour Involuntary Admission: No Attestations NPU Medical Necessity Statement*: Patient will remain in the hospital another 2-4 nights for assessment of medication efficacy and tolerability. Coding Level of Care Code Acute Photographic Enlarger Operator for Bren Arevalo
[2020-04-23 13:43] VITALS: BP 123/71; PULSE 86; RESP 20; TEMP 37.1; O2SAT 95
[2020-04-23] MEDS: trazodone 50 mg Tablet 200 MG PO (20:47)
[2020-04-23] MEDS: PARoxetine 20 mg Tablet PO (20:47)
[2020-04-23 21:27] VITALS: BP 119/80; PULSE 77; RESP 20; TEMP 36.6; O2SAT 96
--- NOTE | 2020-04-23 22:04 | PC.NURSE ---
PRN ATIVAN ATIVAN 2MG PO GIVEN PER CIWA PROTOCOL. CIWA SCORE 12. WILL MONITOR FOR MEDICATION EFFECTIVENESS.
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
[2020-04-24 06:00] VITALS: BP 104/66; PULSE 88; RESP 20; TEMP 36.9; O2SAT 93
[2020-04-24] MEDS: nicotine 2 mg Gum BUCCAL (06:22)
[2020-04-24] MEDS: acetaminophen 325 mg Tablet 650 MG PO ×2 (06:44→11:08)
[2020-04-24] MEDS: folic acid 1 mg Tablet PO (08:21)
[2020-04-24] MEDS: chlordiazePOXIDE 10 mg Capsule PO ×2 (08:21→17:35)
[2020-04-24] MEDS: lisinopril 20 mg Tablet PO (08:21)
[2020-04-24] MEDS: thiamine 100 mg Tablet PO (08:21)
[2020-04-24] MEDS: multivitamin therapeutic Tablet 1 TAB PO (08:21)
--- NOTE | 2020-04-24 09:48 | PM.NPN ---
Subjective NPU Subjective: Interval history: The patient says he is doing a lot better than when he entered the hospital. His CIWA score yesterday was 12, necessitating a 2-milligram dose of lorazepam. Today the nursing staff do not see sufficient symptomatology to necessitate further lorazepam. The patient is focused on his right foot and I review the imaging technology, which is reported as showing no fractures or disruption of the joints. He still hurts in the ball of his right foot. I suggest an outpatient podiatry appointment. He has to leave tomorrow because of probation supervision. Medications: Reviewed: Yes Medication Review Details: Current Medications Acetaminophen (Tylenol) 650 mg PO Q4H PRN PRN Reason: MILD PAIN Last Admin: 04/24/20 06:44 Dose: 650 mg Documented by: Benztropine Mesylate (Cogentin) 1 mg PO BID PRN PRN Reason: Mild Extrapyramidal symptoms Camphor/Menthol/Phenol (Blistex) 1 applic TOPICAL Q1H PRN PRN Reason: DRYNESS Chlordiazepoxide (Librium) 10 mg PO BID [facility] Stop: 04/26/20 08:59 Last Admin: 04/24/20 08:21 Dose: 10 mg Documented by: Diphenhydramine HCl (Benadryl) 50 mg IM ONCE PRN PRN Reason: Severe Extrapyramidal Symptoms Diphenhydramine HCl (Benadryl) 50 mg IM Q4H PRN PRN Reason: Severe Aggression Folic Acid (Folic Acid) 1 mg PO DAILY [facility] Last Admin: 04/24/20 08:21 Dose: 1 mg Documented by: Haloperidol (Haldol) 5 mg PO Q4H PRN PRN Reason: AGITATION Haloperidol Lactate (Haldol Inj) 5 mg IM Q4H PRN PRN Reason: Severe Aggression Hydroxyzine Pamoate (Vistaril) 50 mg PO Q6H PRN PRN Reason: ANXIETY Last Admin: 04/23/20 23:28 Dose: 50 mg Documented by: Lisinopril (Prinivil) 20 mg PO DAILY [facility] Last Admin: 04/24/20 08:21 Dose: 20 mg Documented by: Loperamide HCl (Imodium Capsule) 2 mg PO Q6H PRN PRN Reason: DIARRHEA Lorazepam (Ativan) 2 mg IM Q4H PRN PRN Reason: Severe Aggression Lorazepam (Ativan) 2 mg PO PROTOCOL PRN; Protocol PRN Reason: WITHDRAWAL Last Admin: 04/23/20 22:01 Dose: 2 mg Documented by: Multivitamins Therapeutic (Multivitamin Tab) 1 tab PO DAILY [facility] Last Admin: 04/24/20 08:21 Dose: 1 tab Documented by: Nicotine (Nicoderm 21 Mg Patch) 1 patch TRANSDERMA DAILY PRN PRN Reason: NICOTINE WITHDRAWAL Last Admin: 04/23/20 08:34 Dose: 1 patch Documented by: Nicotine Polacrilex (Nicorette) 2 mg BUCCAL Q2H PRN PRN Reason: NICOTINE WITHDRAWAL Last Admin: 04/24/20 06:22 Dose: 2 mg Documented by: Olanzapine (Zyprexa Zydis) 5 mg PO Q4H PRN PRN Reason: Agitation/Psychosis Ondansetron HCl (Zofran) 4 mg PO Q6H PRN PRN Reason: NAUSEA AND VOMITING Last Admin: 04/23/20 05:16 Dose: 4 mg Documented by: Paroxetine HCl (Paxil) 20 mg PO BEDTIME [facility] Last Admin: 04/23/20 20:47 Dose: 20 mg Documented by: Thiamine Mononitrate (Vitamin B-1) 100 mg PO DAILY [facility] Last Admin: 04/24/20 08:21 Dose: 100 mg Documented by: Trazodone HCl (Desyrel) 200 mg PO BEDTIME [facility] Last Admin: 04/23/20 20:47 Dose: 200 mg Documented by: Mental Status Exam MSE Comments: This is a 55-year-old male who seems younger than his stated age. He is disheveled and hygiene is have a weathered soul. Mood is disgruntled and affect is appropriate to his mood. Thought processes are integrated and free of any racing, blocking or looseness of association. There is no evidence of psychosis, such as but not limited to hallucinations, delusions and ideas of reference. Cognitive functions are adequate for safety. Insight and judgment are fragile. He is after all a long-term alcoholic. Vitals/I&O/Wt Last Vital Signs Temp 98.5 F 04/24/20 06:00 Pulse 88 04/24/20 06:00 Resp 20 H 04/24/20 06:00 BP 104/66 04/24/20 06:00 Pulse Ox 93 04/24/20 06:00 Weight last 48 hrs Weight 264 lb 8 oz Data NPU : 04/21/20 12:27 04/21/20 12:27 A&P Assessment and plan (1) Depression: Patient is currently on affordable and appropriate pharmacotherapy. If he can stabilize as a sober person, I believe his depression will resolve very quickly. Status: Acute Qualifiers: Depression Type: unspecified Qualified Code(s): F32.9 - Major depressive disorder, single episode, unspecified (2) Alcohol abuse: Referral to appropriate rehab if the patient will comply. Status: Acute Involuntary Hold Information 96 Hour Hold: 96 Hour Involuntary Admission: No Attestations NPU Medical Necessity Statement*: Anticipate discharge tomorrow necessitated by probation supervision issues. Time Spent in Patient Care: Greater than 35 minutes (>than 50% of time spent in counselling and/or direct pt care on unit). Coding Level of Care Code Acute Medical Receptionist Biller for Bren Arevalo Diagnoses Depression F32.9 Depression Type: unspecified Alcohol abuse F10.10
[2020-04-24] MEDS: nicotine 21 mg Patch 1 PATCH TRANSDERMA (10:40)
[2020-04-24 13:52] VITALS: BP 109/66; PULSE 90; RESP 20; TEMP 37.2; O2SAT 96
[2020-04-24] MEDS: hyDROXYzine 25 mg Capsule 50 MG PO (21:21)
[2020-04-24] MEDS: trazodone 50 mg Tablet 200 MG PO (21:21)
[2020-04-24] MEDS: PARoxetine 20 mg Tablet PO (21:21)
[2020-04-24 22:00] VITALS: BP 162/75; PULSE 77; RESP 17; TEMP 36.6; O2SAT 97
--- NOTE | 2020-04-24 23:50 | PC.NURSE ---
pt requested anxiety med when given scheduled HS paxil and trazodone.
[2020-04-25 06:00] VITALS: BP 109/76; PULSE 89; RESP 18; TEMP 37; O2SAT 96
[2020-04-25] MEDS: nicotine 2 mg Gum BUCCAL (06:15)
[2020-04-25] MEDS: chlordiazePOXIDE 10 mg Capsule PO (08:51)
[2020-04-25] MEDS: folic acid 1 mg Tablet PO (08:51)
[2020-04-25] MEDS: lisinopril 20 mg Tablet PO (08:51)
[2020-04-25] MEDS: thiamine 100 mg Tablet PO (08:51)
[2020-04-25] MEDS: nicotine 21 mg Patch 1 PATCH TRANSDERMA (08:51)
[2020-04-25] MEDS: multivitamin therapeutic Tablet 1 TAB PO (08:51)
[2020-04-25] MEDS: acetaminophen 325 mg Tablet 650 MG PO (09:44)
--- NOTE | 2020-04-25 10:05 | P.DS_ITS ---
Diagnoses at Discharge Discharge Diagnosis (1) Depression: Status: Acute Problem details: This patient will have to be committed to sobriety. A long-term support group, such as AA is indicated. Qualifiers: Depression Type: unspecified Qualified Code(s): F32.9 - Major depressive disorder, single episode, unspecified (2) Alcohol abuse: Status: Acute Problem details: Patient has successfully withdrawn from active alcohol consumption. Reason for Visit Reason for Visit: mhe Brief History: Patient was acutely addicted to alcohol and required CIWA, which he has now completed without adverse effect. Hospital Course Hospital Course The patient today is described as asymptomatic of alcohol withdrawal. He is more worried about his probation, which will, if appropriately pursued, keep him out of intermediate. Involuntary Hold Information 96 Hour Hold: 96 Hour Involuntary Admission: No Mental Status Exam MSE Comments: This is a 55-year-old male who seems younger than his stated age. 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 Mood is cheerful and affect is appropriate to his mood. Thought processes are integrated and free of any racing, blocking or looseness of association. There is no evidence of psychosis, such as but not limited to hallucinations, delusions and ideas of reference. Cognitive functions are adequate for safety. Insight and judgment are fragile. He is after all a long- term alcoholic. Physical Exam Narrative: EXAM NARRATIVE: Const: COMMON NORMALS: no acute distress, patient oriented x3, no limitations, healthy appearing and well nourished GENERAL APPEARANCE: cooperative and well developed HENMT: COMMON NORMALS: normocephalic, atraumatic, external ears normal, EAC's normal and Normal external nose present HEAD & SCALP: normal to inspection, normocephalic and atraumatic FACE & SINUS: normal facial exam and face symmetric NOSE: Normal external nose present and Normal nares present EXTERNAL EAR: Yes external ears normal EXTERNAL AUDITORY CANAL: EAC's normal MOUTH: Normal oral and palatal mucosa present, lip normal and tongue normal Eye: COMMON NORMALS: Equal, round and reactive pupils present and conjunctivae normal GENERAL EYE: appearance normal, both eyes and all related structures ALIGNMENT: Yes alignment normal PERIORBITAL: periorbital findings normal EYELID: eyelids normal CONJUNCTIVA: Yes conjunctivae normal SCLERA: sclerae normal PUPIL: Yes Equal, round and reactive pupils present Neck/C-Spine: COMMON NORMALS: full ROM, no lymphadenopathy, supple, no meningeal signs and no JVD GENERAL: Yes normal visual inspection and Yes trachea midline Chest: COMMONS NORMALS: normal inspection of the chest and normal palpation of entire chest wall Resp: COMMON NORMALS: normal respiratory effort, No retractions and No use of accessory muscles EFFORT & INSPECTION: Yes able to speak in complete sentences and Yes symmetric chest movement AUSCULTATION: no crackles, no rales, no rhonchi and no wheezes Cardio: COMMON NORMALS: no JVD, regular rate, regular rhythm, S1 normal heart sound present and S2 normal heart sound present RATE: regular rate RHYTHM: regular rhythm HEART SOUNDS: S1 normal heart sound present, S2 normal heart sound present, no click, no gallops, no murmurs, no rubs and abnormal split S2 GI: COMMON NORMALS: Soft to palpation and No hepatosplenomegaly present PALPATION: Yes Soft to palpation, No Tenderness to palpation present (GI), No Guarding due to palpation present (GI), No Rigid due to palpation, Yes No hepatosplenomegaly present, No Hernia present, No Palpable mass present and No Pulsatile mass present : COMMON NORMALS: Yes no CVA tenderness BLADDER/KIDNEY EXAM: Yes no CVA tenderness EXTERNAL FEMALE EXAM: No Hernia present Back/Pelvis: COMMON NORMALS: no CVA tenderness, thoracic and lumbar spine normal to inspection, no thoracic nor lumbar tenderness and thoraco-lumbar ROM normal Extremity: COMMON NORMALS: normal to inspection, full ROM, capillary refill normal, no joint enlargement, no clubbing, cyanosis or edema and no calf tenderness Neuro: COMMON NORMALS: patient oriented x3, CN's II-XII intact bilaterally, moves all extremities, no focal motor deficits and no sensory deficits noted MENINGEAL SIGNS: Yes no meningeal signs SPEECH: speech normal Psych: See mental status. Skin: COMMON NORMALS: no rashes or lesions noted, turgor normal, no jaundice, no petechiae and no mottling GENERAL SKIN EXAM: no rashes or lesions noted and turgor normal Discharge Data Data Completed and Pending: Completed Studies During Hospitalization Category Date Time Status XR foot RT 2V 736 20 Routine Exams 04/23/20 06:28 Completed Vitals: Last Vital Signs Temp 98.6 F 04/25/20 06:00 Pulse 89 04/25/20 06:00 Resp 18 04/25/20 06:00 BP 109/76 04/25/20 06:00 Pulse Ox 96 04/25/20 06:00 Discharge Plan Discharge Patient Disposition: Home Condition: Stable Prescriptions: Continued lisinopril 20 mg Tablet 20 mg PO DAILY 30 Days Qty: 30 RF: 3 Discontinued ibuprofen 200 mg Tablet 800 mg PO PRN PRN (Reason: Pain) RF: 0 Discharge Orders: Discharge Order (Routine); Ordered 04/25/20 Ordered By: Kedar Thacker Referrals: [facility] [Outside] - 1-3 days (Follow up for intake appointment. This can be done as a walk in, Saturday-Saturday from 7:30am-2:00pm. ) [facility] [Outside] (Homeless senior care resource Also provide meals 3x a day-call for times) [facility] [Outside] - 1-3 days (Resource for inpatient and outpatient substance abuse treatment.) Discharge Diet: Usual diet Discharge Activity: Resume usual activity Discharge Attestations NPU Time Spent in Discharge Care*: greater than 30 min Coding Level of Care Code Acute Diesel Pile Hammer Operator for Chg Fwd Diagnoses Depression F32.9 Depression Type: unspecified Alcohol abuse F10.10
[2020-04-25 10:30] VITALS: BP 109/76; PULSE 89; RESP 18; TEMP 37; O2SAT 96
[2020-04-25 10:34] VITALS: BP 109/76; PULSE 89; RESP 18; TEMP 37; O2SAT 96
== END 2020-04-25 13:05 | disposition home or self-care (01) | DRG 885 ==
LOC: ER 12:25 → NP 13:12
PROVIDERS: Admitting Provider Psychiatry & Neurology Psychiatry; Emergency Provider Emergency Medicine; PCP Family Medicine; Visit Provider Psychiatry & Neurology Psychiatry
DX: F32.1 Major depressive disorder, single episode, moderate (principal); F10.239 Alcohol dependence with withdrawal, unspecified; F10.229 Alcohol dependence with intoxication, unspecified; Y90.8 Blood alcohol level of 240 mg/100 ml or more; F17.210 Nicotine dependence, cigarettes, uncomplicated
CPT/HCPCS: 12345; 36415; 73620; 80053; 80306; 80307; 85025; 96372; 99284; 99285; J2060; Q0162

== ENCOUNTER 2020-05-13 19:40 | Emergency (ER) | payer MEDICAID, SELFPAY ==
[2020-05-13 19:42] VITALS: BP 101/62; PULSE 98; RESP 17; TEMP 36.8; O2SAT 96; BMI 23.7
--- NOTE | 2020-05-13 19:58 | W.ED.WOUNDLC ---
HPI - Wound/Laceration General: Chief Complaint: Wound/Laceration Stated Complaint: lac to left bicep Time Seen by Provider: 05/13/20 19:53 Source: patient Mode of arrival: ambulatory Limitations: no limitations History of Present Illness: HPI narrative: Intoxicated male patient comes in today with injury to the left upper arm. Patient reports that he was walking outside and bent down to crop picker something and slipped and fell lacerating his left upper arm on a broken toilet. Patient has a approximately 3 inch laceration to the left upper arm with some muscle involvement. Bleeding is controlled. Patient reports last tetanus shot within 10 years. Patient appears well. Review of Systems General: Reports: 10 or more systems reviewed and unremarkable except in HPI and below Skin/Breast: Reports: other (laceration left upper arm) PFSH ED PFSH: Social History Smoking and tobacco status: current every day smoker Physical Exam Const: COMMON NORMALS: no acute distress and patient oriented x3 GENERAL APPEARANCE: cooperative HENMT: COMMON NORMALS: normocephalic and Normal external nose present HEAD & SCALP: normal to inspection and normocephalic NOSE: Normal external nose present MOUTH: Normal oral and palatal mucosa present Eye: GENERAL EYE: appearance normal, both eyes and all related structures Neck/C-Spine: COMMON NORMALS: full ROM Chest: COMMONS NORMALS: normal inspection of the chest Resp: COMMON NORMALS: normal respiratory effort EFFORT & INSPECTION: Yes able to speak in complete sentences Cardio: COMMON NORMALS: regular rate and regular rhythm RATE: regular rate RHYTHM: regular rhythm GI: COMMON NORMALS: non-tender Back/Pelvis: COMMON NORMALS: thoracic and lumbar spine normal to inspection Extremity: COMMON NORMALS: normal to inspection Neuro: COMMON NORMALS: patient oriented x3 and moves all extremities Psych: COMMON NORMALS: mental status grossly normal and cooperative Skin: NARRATIVE SKIN EXAM: 10 cm laceration to the left upper arm. Muscle involvement is noted. Patient has good movement and tendon function with good neuro vasculature. Procedures Laceration Laceration 1: Site: upper extremity Side (If applicable): left Size (cm): 10 Description: linear Depth: involves muscle layer Local Anesthetic: lidocaine 1% Amount of anesthesia used (mL): 15 Pre-repair: wound explored and irrigated extensively Skin layer closed with: nylon Size (cm): 4-0 Number of sutures: 15 Technique: running Muscle layer closed with: vicryl Size: 4-0 Number of sutures: 10 Technique: simple, interrupted Course Vital Signs: Vital signs: Vital Signs Temperature 98.2 F 05/13/20 19:42 Pulse Rate 94 05/13/20 20:29 Respiratory Rate 18 05/13/20 20:29 Blood Pressure 91/51 05/13/20 20:29 Pulse Oximetry 94 05/13/20 20:29 MDM - Wound/Laceration MDM Narrative: Medical decision making narrative: Patient comes in for injury to the left upper arm. On exam we note a 10 cm laceration to the left upper arm with muscle involvement. Patient has good range of motion of the arm. Good strength in the arm. Pulses intact. Neuro vasculature is intact. Differential diagnosis includes but not limited to foreign body, laceration, alcohol intoxication, need for prophylaxis tetanus. Wound was explored no foreign body was noted. Muscle was closed with 10 sutures of 4-0 Vicryl. Upper layer was closed with 1 running stitch of 15. Bleeding was controlled. Patient had good mobility of the arm post procedure. Reviewed post procedure care and need for follow-up. Patient reported understanding. Discharge Plan Discharge Patient Disposition: Home Clinical Impression: Laceration Condition: Stable Prescriptions: New cephalexin 500 mg capsule 500 mg PO BID 10 Days Qty: 20 RF: 0 No Action lisinopril 20 mg Tablet 20 mg PO DAILY 30 Days Qty: 30 RF: 3 Tylenol Extra Strength 500 mg Tablet 1,000 mg PO PRN RF: 0 ibuprofen 200 mg Tablet 1,200 mg PO PRN RF: 0 Discharge Orders: Discharge Order (Routine); Ordered 05/13/20 Ordered By: Сергей Tapia Referrals: Neeraj Benito DO [Primary Care Provider] - Discharge Diet: Usual diet Discharge Activity: Increase activity as tolerated Patient Instructions: Laceration (ED) Activity Restrictions/Additional Instructions: Do not lift greater than 10 pounds with the affected arm for the next 14 days. Increase activity then as tolerated. Take antibiotics as directed. Sutures out in 10 days. Acetaminophen and ibuprofen as needed for pain. Follow-up with primary care as needed. Return to the emergency department for new concerns. Coding Level of Care Code ED Level Vial Inspector And Tester for Bren Arevalo
[2020-05-13 20:29] VITALS: BP 91/51; PULSE 94; RESP 18; O2SAT 94
[2020-05-13] MEDS: tetanus-dipt-pertussis 0.5 mL SDV IM (20:45)
[2020-05-13] MEDS: cephALEXin 500 mg Capsule PO (20:45)
--- NOTE | 2020-05-13 20:50 | PC.NURSE ---
TELFA WITH 4X4'S APPLIED WITH COBAN. PT INFORMED WHEN TO LOOSEN DRESSING PT VERBALIZED UNDERSTANDING.
== END 2020-05-13 20:53 | disposition home or self-care (01) ==
PROVIDERS: Emergency Provider Nurse Practitioner Family; PCP Family Medicine
DX: S41.112A Laceration without foreign body of left upper arm, initial encounter (principal); W25.XXXA Contact with sharp glass, initial encounter; F17.210 Nicotine dependence, cigarettes, uncomplicated; Z23 Encounter for immunization
CPT/HCPCS: 12345; 13121; 13122; 90471; 90715; 99281; 99283

== ENCOUNTER 2020-05-14 14:29 | Inpatient (IN) | payer MEDICAID, SELFPAY ==
--- NOTE | 2020-05-14 14:34 | ECG_ITS ---
[facility] Test Date: 2020-05-14 Pat Name: Hayes Cartagena Department: Room: Gender: Male Histopathologist: : 1965 Requested By: Jovanna Lawson Order Number: [id number] Caldwell MD: Mathieu Mcdonald M.D. Measurements Intervals [place] Rate: 87 P: 76 UT: 164 QRS: 85 QRSD: 113 T: 60 QT: 360 QTc: 434 Interpretive Statements SINUS RHYTHM MODERATE INTRAVENTRICULAR CONDUCTION DELAY [110+ ms QRS DURATION] Compared to ECG 03/10/2020 18:27:48 Intraventricular conduction delay now present Electronically Signed On 05-14-2020 20:54:29 CDT by Mathieu Mcdonald M.D. [id number]
[2020-05-14 14:35] VITALS: BP 71/53; PULSE 107; RESP 16; TEMP 36.3; O2SAT 98; BMI 23.0
[2020-05-14 15:16] LABS: Basophils % 0.4 %; Eosinophils # 0.3 10^3/uL (0.0-0.8); Eosinophils % 3.2 %; Hematocrit 33.4 % (42.0-52.0); Lymphocytes # 3.1 10^3/uL (0.8-4.8); Lymphocytes % 29.5 %; Mean Corpuscular HGB Conc 32.9 g/dL (30.0-36.0); Mean Corpuscular Hemoglobin 30.9 pg (28.0-34.0); Mean Corpuscular Volume 93.8 fL (80-94); Mean Platelet Volume 8.9 fL (7.4-10.4); Monocytes # 1.1 10^3/uL (0.2-0.9); Monocytes % 10.5 %; Neutrophils # 5.84 10^3/uL (1.8-7.7); Neutrophils % 55.9 %; Nucleated Red Blood Cells % 0 %; Platelet Count 283 10^3/cmm (130-400); Red Blood Count 3.56 10^6/uL (4.1-5.3); Red Cell Distribution Width 14.6 % (12.1-15.1); White Blood Count 10.4 10^3/uL (4.0-10.0)
[2020-05-14] MEDS: sodium chloride 0.9% 1,000 ML 999 ML IV (15:26)
--- NOTE | 2020-05-14 15:27 | PC.NURSE ---
Patient walked out of his room, stumbled sideways into crash cart in hallway causing a laceration to his right lower arm.
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
[2020-05-14 16:29] LABS: Alanine Aminotransferase 20 U/L (0-41); Albumin Level 3.8 g/dL (3.5-5.2); Alcohol Level 298 mg/dL (0-10); Alkaline Phosphatase 50 IU/L (40-130); Anion Gap 14.4 (5-19); Aspartate Amino Transferase 39 U/L (0-40); Blood Urea Nitrogen 17 mg/dL (6-20); Calcium 8.5 mg/dL (8.5-10.5); Carbon Dioxide 19 mmol/L (22-29); Chloride 100 mmol/L (98-107); Creatinine Clr Calc Pharmacy 77.9419; Globulin 2.7 g/dL (1.3-4.6); Glomerular Filtration Rate 63.3 mL/min (90-130); Glucose 106 mg/dL (65-115); Osmolality Calculated 265 mOsm/kg (285-295); Potassium 4.4 mmol/L (3.5-5.1); Sodium 129 mmol/L (136-145); Thyroid Stimulating Hormone 0.42 uIU/mL (0.27-4.20); Total Bilirubin 0.3 mg/dL (0.15-1.2); Total Protein 6.5 g/dL (6.6-8.7)
[2020-05-14 16:30] LABS: Acetaminophen < 5.0 ug/mL (10-30); Salicylate < 0.3 mg/dL (3-10)
[2020-05-14 17:02] LABS: Amphetamines Screen Urine Negative (Negative); Barbiturates Screen Urine Negative (Negative); Benzodiazepines Screen Urine Negative (Negative); Cocaine Screen Urine Negative (Negative); Opiate Screen Urine Negative (Negative); PCP Screen Urine Negative (Negative); THC Screen Urine Negative (Negative)
[2020-05-14 17:05] VITALS: BP 102/65
[2020-05-14 18:05] VITALS: RESP 18
[2020-05-14 18:15] VITALS: BP 94/63; PULSE 91; RESP 20; TEMP 37.1; O2SAT 96
[2020-05-14] MEDS: ondansetron 4 MG Tablet PO (19:01)
[2020-05-14] MEDS: nicotine 2 mg Gum BUCCAL (19:01)
[2020-05-14] MEDS: cephALEXin 500 mg Capsule PO (21:03)
[2020-05-14] MEDS: trazodone 50 mg Tablet PO (21:04)
[2020-05-14] MEDS: hyDROXYzine 25 mg Capsule 50 MG PO (21:04)
--- NOTE | 2020-05-14 21:08 | PC.NURSE ---
PRN VISTARIL & TRAZODONE PT REQUESTING ANXIETY MEDICATION AND SLEEP AID. ADMINISTERED VISTARIL 50MG & TRAZODONE 50MG PO. WILL MONITOR FOR MEDICATION EFFECTIVENESS.
[2020-05-14 21:37] VITALS: BP 85/46; PULSE 100; RESP 18; TEMP 36.7; O2SAT 93
[2020-05-15 06:00] VITALS: BP 124/72; PULSE 96; RESP 18; TEMP 36.9; O2SAT 96
[2020-05-15] MEDS: cephALEXin 500 mg Capsule PO ×2 (07:42→17:35)
[2020-05-15] MEDS: lisinopril 20 mg Tablet PO (07:42)
[2020-05-15] MEDS: nicotine 2 mg Gum BUCCAL ×4 (07:42→19:36)
[2020-05-15] MEDS: acetaminophen 325 mg Tablet 650 MG PO ×3 (07:42→19:36)
[2020-05-15] MEDS: ondansetron 4 MG Tablet PO ×2 (07:45→14:53)
[2020-05-15 14:00] VITALS: BP 115/70; PULSE 107; RESP 20; TEMP 37.1; O2SAT 96
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
[2020-05-15] MEDS: hyDROXYzine 25 mg Capsule 50 MG PO (21:15)
[2020-05-15] MEDS: trazodone 50 mg Tablet PO (21:15)
[2020-05-15 21:28] VITALS: BP 102/70; PULSE 103; RESP 20; TEMP 37.1; O2SAT 98
--- NOTE | 2020-05-15 22:23 | PC.NURSE ---
Pt given prn Tylenol, trazodone, and vistaril per pt request.
[2020-05-16] MEDS: nicotine 2 mg Gum BUCCAL ×3 (03:56→11:59)
[2020-05-16] MEDS: acetaminophen 325 mg Tablet 650 MG PO ×3 (03:56→19:55)
[2020-05-16 06:00] VITALS: BP 116/75; PULSE 74; RESP 17; TEMP 37.1; O2SAT 97
[2020-05-16] MEDS: hyDROXYzine 25 mg Capsule 50 MG PO ×2 (06:05→20:59)
[2020-05-16] MEDS: lisinopril 20 mg Tablet PO (09:18)
[2020-05-16] MEDS: cephALEXin 500 mg Capsule PO ×2 (09:18→17:26)
--- NOTE | 2020-05-16 12:59 | P.PN_ITS ---
Subjective NPU Subjective: Interval history: Patient describes multiple psychosocial stressors that have led to his current predicament of being homeless and with little financial support. We discussed potential benefits of antidepressants. He acknowledged that he suffers from clinical depression in terms of feelings of hopelessness, worthlessness, anhedonia, irritability, poor concentration, poor sleep and persistent sadness. He was willing to accept a trial on antidepressant medication but acknowledged that the solution of his psychosocial situation is his primary goal. Mental Status Exam MSE Comments: This is an well nourished, well developed, white male, in a hospital gown, unket, with fair eye contact. No abnormal movements . Cooperative with exam. Speech was nl rate and volume. Mood described as depressed out; affect nonchalant. Thought process, organized. Thought content: patient denied suicidal ideation, there was no homicidal ideation endorsed. He endorsed hearing things, but no delusional content was noted. He did not appear to be attending to internal stimuli. Attention and concentration were limited, and memory is unreliable, but none were formally tested. He is alert and oriented times three. Insight and judgment are impaired. Impulse control is impaired. Cognition: Patient Appearance: Appropriate Level of Consciousness: Awake, Alert and Disoriented Patient Cognition Impaired: No Ability to Follow Directions: Fair Patient Orientation (long list): Person, Place, Time and Name Comprehension Ability: No Impairment Hallucination Type: None Delusion Description: Not Present Thought Process: Appropriate Affect: Affect Description: Calm Behavior: Patient Behavior: Cooperative Speech Pattern: Clear Vitals/I&O/Wt Last Vital Signs Temp 98.8 F 05/16/20 06:00 Pulse 74 05/16/20 06:00 Resp 17 05/16/20 06:00 BP 116/75 05/16/20 06:00 Pulse Ox 97 05/16/20 06:00 Weight last 48 hrs Weight 77.111 kg Weight 77.111 kg Data NPU : 05/14/20 14:40 05/14/20 15:48 A&P Assessment and plan (1) Suicidal ideation: Status: Acute (2) Laceration: Status: Acute (3) Alcoholic intoxication: Status: Acute Qualifiers: Complication of substance-induced condition: uncomplicated Qualified Code(s): F10.920 - Alcohol use, unspecified with intoxication, uncomplicated (4) Alcohol use disorder: Status: Acute (5) Depression: Status: Acute (6) Malingering: Status: Acute (7) Adjustment disorder with mixed disturbance of emotions and conduct: Status: Acute Additional A&P Information This is a 55 year old, white male, with a history of addiction, depression, active addiction and recent stressors with concerns for malingering who presents to the unit, not open to a discussion about medication today, seeking the safety and support of the inpatient unit. Due to the psychiatric conditions and treatment listed in the Assessment and Plan - the patient requires continued hospitalization. Will provide a safe and therapeutic environment for patient.. Will continue inpatient treatment to allow for medication adjustment and monitoring. Will continue q15 min safety checks. Hospital day #3: Patient agrees to a trial of paroxetine 20 mg at bedtime supplemented by trazodone 100 mg at bedtime as needed insomnia. Potential benefits and side effects of medication and its use was agreed upon by patient. He will continue to work with social work services to find food and intermediate following discharge. Monitor patient's mood, sleep, appetite, and behavior closely. Encourage patient to participate in individual and group therapeutic sessions on the gaines. Estimated length of stay 5 days The expected benefits and potential side effects of patient's psychiatric medications were discussed with the patient. The patient understands and c onsents to treatment. CRITERIA FOR DISCHARGE: stable on medications and no longer an imminent threat to self or others Involuntary Hold Information 2 96 Hour Hold: 96 Hour Involuntary Admission: Yes 96 Hour Hold Ending Date: 05/20/20 96 Hour Hold Ending Time: 12:01 Attestations NPU Medical Necessity Statement*: Patient will remain in the hospital another 2-4 nights for assessment of medication efficacy and tolerability. Coding Level of Care Code Acute Flight Attendant Inflight Services for Bren Arevalo Diagnoses Suicidal ideation R45.851 Laceration Alcoholic intoxication F10.920 Complication of substance-induced condition: uncomplicated Alcohol use disorder Depression F32.9 Malingering Z76.5 Adjustment disorder with mixed disturbance of emotions and conduct F43.25
[2020-05-16 14:00] VITALS: BP 105/68; PULSE 89; RESP 20; TEMP 37; O2SAT 96
[2020-05-16] MEDS: nicotine 21 mg Patch 1 PATCH TRANSDERMA (15:57)
[2020-05-16] MEDS: ondansetron 4 MG Tablet PO (16:19)
[2020-05-16] MEDS: PARoxetine 20 mg Tablet PO (20:59)
[2020-05-16] MEDS: trazodone 100 mg Tablet PO (20:59)
[2020-05-16 22:00] VITALS: BP 121/76; PULSE 100; RESP 18; TEMP 36.8; O2SAT 98
[2020-05-17 06:00] VITALS: BP 102/69; PULSE 143; RESP 18; TEMP 36.8; O2SAT 98
[2020-05-17] MEDS: acetaminophen 325 mg Tablet 650 MG PO ×3 (06:11→21:08)
--- NOTE | 2020-05-17 06:17 | PC.NURSE ---
PRN Tylenol 650 mg PO given at 0611 for back pain. Patient's back is hurting.. rated a 7 on 1-10 pain scale Will continue to monitor for pain management and control
[2020-05-17] MEDS: lisinopril 20 mg Tablet PO (09:27)
[2020-05-17] MEDS: hyDROXYzine 25 mg Capsule 50 MG PO ×2 (09:28→20:55)
[2020-05-17] MEDS: cephALEXin 500 mg Capsule PO ×2 (09:28→18:07)
--- NOTE | 2020-05-17 09:28 | PC.NURSE ---
PRN VISTARIL VISTARIL 50MG PO PER PATIENT C/O ANXIETY. WILL CONTINUE TO MONITOR FOR MEDICATION EFFECTIVENESS.
--- NOTE | 2020-05-17 10:15 | PC.NURSE ---
PRN VISTARIL FOLLOW UP MEDICATION EFFECTIVE. NO FURTHER C/O ANXIETY.
--- NOTE | 2020-05-17 12:25 | P.PN_ITS ---
Subjective NPU Subjective: Interval history: Patient states that he continues to work on a destination following discharge. He reports that he was not happy with the paroxetine that was begun last night. His only concern is that it helps him sleep. He had written very little interest in the potential benefits for depression. Alternatives were discussed and the plan below agreed upon. Mental Status Exam MSE Comments: This is an well nourished, well developed, white male, in a hospital gown, unkempt, with fair eye contact. No abnormal movements . Cooperative with exam. Speech was nl rate and volume. Mood described as depressed out; affect nonchalant. Thought process, organized. Thought content: patient denied suicidal ideation, there was no homicidal ideation endorsed. He endorsed hearing things, but no delusional content was noted. He did not appear to be attending to internal stimuli. Attention and concentration were limited, and memory is unreliable, but none were formally tested. He is alert and oriented times three. Insight and judgment are impaired. Impulse control is impaired. Cognition: Patient Appearance: Appropriate Level of Consciousness: Awake, Alert and Disoriented Patient Cognition Impaired: No Ability to Follow Directions: Fair Patient Orientation (long list): Person, Place, Time and Name Comprehension Ability: No Impairment Hallucination Type: None Delusion Description: Not Present Thought Process: Appropriate Affect: Affect Description: Calm Behavior: Patient Behavior: Cooperative Speech Pattern: Clear Vitals/I&O/Wt Last Vital Signs Temp 98.2 F 05/17/20 06:00 Pulse 143 H 05/17/20 06:00 Resp 18 05/17/20 06:00 BP 102/69 05/17/20 06:00 Pulse Ox 98 05/17/20 06:00 Data NPU : 05/14/20 14:40 05/14/20 15:48 A&P Assessment and plan (1) Suicidal ideation: Status: Acute (2) Laceration: Status: Acute (3) Alcoholic intoxication: Status: Acute Qualifiers: Complication of substance-induced condition: uncomplicated Qualified Code(s): F10.920 - Alcohol use, unspecified with intoxication, uncomplicated (4) Alcohol use disorder: Status: Acute (5) Depression: Status: Acute (6) Malingering: Status: Acute (7) Adjustment disorder with mixed disturbance of emotions and conduct: Status: Acute Additional A&P Information This is a 55 year old, white male, with a history of addiction, depression, active addiction and recent stressors with concerns for malingering who presents to the unit, not open to a discussion about medication today, seeking the s afety and support of the inpatient unit. Due to the psychiatric conditions and treatment listed in the Assessment and Plan - the patient requires continued hospitalization. Will provide a safe and therapeutic environment for patient.. Will continue inpatient treatment to allow for medication adjustment and monitoring. Will continue q15 min safety checks. Hospital day #3: Patient agrees to a trial of paroxetine 20 mg at bedtime supplemented by trazodone 100 mg at bedtime as needed insomnia. Potential benefits and side effects of medication and its use was agreed upon by patient. He will continue to work with social work services to find food and long-term following discharge. Hospital day #4: Replace paroxetine with imipramine 100 mg at bedtime Monitor patient's mood, sleep, appetite, and behavior closely. Encourage patient to participate in individual and group therapeutic sessions on the gaines. Estimated length of stay 5 days The expected benefits and potential side effects of patient's psychiatric medications were discussed with the patient. The patient understands and c onsents to treatment. CRITERIA FOR DISCHARGE: stable on medications and no longer an imminent threat to self or others Involuntary Hold Information 2 96 Hour Hold: 96 Hour Involuntary Admission: Yes 96 Hour Hold Ending Date: 05/20/20 96 Hour Hold Ending Time: 12:01 Attestations NPU Medical Necessity Statement*: Patient will remain in the hospital another 1-2 nights for completion of his treatment. Coding Level of Care Code Acute Refrigeration Engineer for Bren Arevalo Diagnoses Suicidal ideation R45.851 Laceration Alcoholic intoxication F10.920 Complication of substance-induced condition: uncomplicated Alcohol use disorder Depression F32.9 Malingering Z76.5 Adjustment disorder with mixed disturbance of emotions and conduct F43.25
[2020-05-17 14:00] VITALS: BP 113/81; PULSE 87; RESP 20; TEMP 36.7; O2SAT 99
[2020-05-17] MEDS: nicotine 21 mg Patch 1 PATCH TRANSDERMA (15:55)
[2020-05-17] MEDS: trazodone 100 mg Tablet PO (20:55)
[2020-05-17] MEDS: ondansetron 4 MG Tablet PO (21:25)
--- NOTE | 2020-05-17 21:26 | PC.NURSE ---
Prn given Zofran 4mg Po for nausea@2125
--- NOTE | 2020-05-17 21:29 | PC.NURSE ---
PRNs given @10:55 Visteril 50mg PO for anxiety @10:55 Trazadone 50mg PO for rest @2107 Tylenol for arm pain Will continue to monitor patient
[2020-05-17 22:00] VITALS: BP 128/73; PULSE 95; RESP 17; TEMP 36.7; O2SAT 98
[2020-05-18 06:00] VITALS: BP 118/60; PULSE 81; RESP 15; TEMP 36.4; O2SAT 98
[2020-05-18] MEDS: lisinopril 20 mg Tablet PO (08:10)
[2020-05-18] MEDS: cephALEXin 500 mg Capsule PO (08:10)
[2020-05-18] MEDS: acetaminophen 325 mg Tablet 650 MG PO (09:16)
[2020-05-18 09:31] VITALS: BP 118/60; PULSE 81; RESP 15; TEMP 36.4; O2SAT 98
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
== END 2020-05-18 11:57 | disposition home or self-care (01) | DRG 897 ==
LOC: ER 16:56 → NP 17:53
PROVIDERS: Emergency Medicine; Admitting Provider Psychiatry & Neurology Psychiatry; PCP Family Medicine; Visit Provider Psychiatry & Neurology Psychiatry
DX: F10.229 Alcohol dependence with intoxication, unspecified (principal); R45.851 Suicidal ideations; F17.210 Nicotine dependence, cigarettes, uncomplicated; F32.9 Major depressive disorder, single episode, unspecified; Z76.5 Malingerer [conscious simulation]; F43.25 Adjustment disorder with mixed disturbance of emotions and conduct
CPT/HCPCS: 12345; 36415; 80053; 80306; 80307; 84443; 85025; 93005; 99283; J7030; Q0162

== ENCOUNTER 2020-06-16 07:04 | Inpatient (IN) | payer MEDICAID, SELFPAY ==
[2020-06-16] VITALS (11 sets, daily range): BP systolic 91–123; BP diastolic 61–82; PULSE 85–117; RESP 18–111; TEMP 36.5–36.9; O2SAT 96–100; BMI 24.4
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
[2020-06-16 07:35] LABS: Basophils # 0.1 10^3/uL (0.0-0.1); Basophils % 0.7 %; Eosinophils # 0.5 10^3/uL (0.0-0.8); Eosinophils % 5.2 %; Hematocrit 38.5 % (42.0-52.0); Hemoglobin 12.7 g/dL (11.7-16.6); Lymphocytes # 1.4 10^3/uL (0.8-4.8); Lymphocytes % 13.3 %; Mean Corpuscular Hemoglobin 30.9 pg (28.0-34.0); Mean Corpuscular Volume 93.7 fL (80-94); Mean Platelet Volume 9.3 fL (7.4-10.4); Monocytes % 9.7 %; Neutrophils # 7.28 10^3/uL (1.8-7.7); Neutrophils % 70.8 %; Nucleated Red Blood Cells % 0 %; Platelet Count 182 10^3/cmm (130-400); Red Blood Count 4.11 10^6/uL (4.1-5.3); Red Cell Distribution Width 13.3 % (12.1-15.1); White Blood Count 10.3 10^3/uL (4.0-10.0)
[2020-06-16 07:53] LABS: Acetaminophen < 5.0 ug/mL (10-30); Alanine Aminotransferase 45 U/L (0-41); Albumin Level 4.5 g/dL (3.5-5.2); Alcohol Level < 10 mg/dL (0-10); Alkaline Phosphatase 83 IU/L (40-130); Anion Gap 25.7 (5-19); Aspartate Amino Transferase 118 U/L (0-40); Blood Urea Nitrogen 38 mg/dL (6-20); Calcium 9.7 mg/dL (8.5-10.5); Carbon Dioxide 18 mmol/L (22-29); Chloride 94 mmol/L (98-107); Globulin 3.5 g/dL (1.3-4.6); Glomerular Filtration Rate 15.3 mL/min (90-130); Glucose 93 mg/dL (65-115); Osmolality Calculated 287 mOsm/kg (285-295); Potassium 3.7 mmol/L (3.5-5.1); Salicylate < 0.3 mg/dL (3-10); Sodium 134 mmol/L (136-145)
[2020-06-16] MEDS: acetaminophen 500 mg Tablet 1000 MG PO (07:56)
[2020-06-16 08:32] LABS: ABG PCO2 31.5 mmHg (35-45); ABG PH Result 7.39 (7.35-7.45); Arterial Blood Gas Hematocrit 39.3 % (42-52); Blood Gas Allen Test Pos; Blood Gas Operator Identificat MONRO; Blood Gas Sample Site Radial, right; Blood Gas Sample Type Arterial; Oxygen Device ROOM AIR; PO2 ABG 88.3 mmHg (80.0-100.0)
[2020-06-16] MEDS: folic acid 1 mg Tablet PO ×2 (08:42→14:46)
[2020-06-16] MEDS: pyridoxine 50 mg Tablet PO (08:43)
[2020-06-16] MEDS: sodium chloride 0.9% 1,000 ML 999 ML IV ×2 (08:45→09:32)
[2020-06-16 09:04] LABS: Ketone (Acetest) Serum Negative (Negative)
[2020-06-16] MEDS: nicotine 21 mg Patch 1 PATCH TRANSDERMA (09:32)
[2020-06-16 09:48] LABS: Add Urine Microscopic? YES; Bilirubin Urine 2+ (Negative); Blood Urine 3+ (Negative); Glucose Urine UA Norm (Normal); Ketones Urine 1+ (Negative); Leukocyte Esterase Urine Trace (Negative); Nitrate Urine Negative (Negative); Protein Urine 1+ (Negative); Urine Appearance Hazy (CLEAR); Urine Color Yellow (Yellow); Urobilinogen Urine 1 mg/dL (Negative); pH Urine 5 (5-7)
[2020-06-16 09:51] LABS: Creatine Phosphokinase 1889 U/L (39-308)
[2020-06-16 09:56] LABS: Amphetamines Screen Urine Positive (Negative); Barbiturates Screen Urine Negative (Negative); Benzodiazepines Screen Urine Negative (Negative); Cocaine Screen Urine Negative (Negative); Opiate Screen Urine Negative (Negative); PCP Screen Urine Negative (Negative); THC Screen Urine Positive (Negative)
[2020-06-16 10:00] LABS: Bacteria Urine 1+ /hpf; Mucus Urine 2+ /hpf; RBC Urine 0-4 /hpf (0-2); Squamous Epithelial Cell Urine 0-4 /hpf (0-5); WBC Urine 0-4 /hpf (0-5)
[2020-06-16 10:01] LABS: Add Urine Culture? No
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
[2020-06-16 13:21] LABS: Magnesium 2.1 mg/dL (1.7-2.3); Phosphorus 5.2 mg/dL (2.5-4.5); Thyroid Stimulating Hormone 1.21 uIU/mL (0.27-4.20)
[2020-06-16] MEDS: heparin 5,000 unit/mL INJ 1 mL 5000 UNIT SUBCUT ×2 (14:45→23:58)
[2020-06-16] MEDS: sodium chloride 0.9% 1,000 ML 150 ML IV ×2 (14:46→21:05)
[2020-06-16] MEDS: TRAMadol 50 mg Tablet PO ×2 (14:46→21:00)
[2020-06-16 16:55] LABS: Anion Gap 16.6 (5-19); Blood Urea Nitrogen 33 mg/dL (6-20); Calcium 8.6 mg/dL (8.5-10.5); Carbon Dioxide 22 mmol/L (22-29); Chloride 100 mmol/L (98-107); Glomerular Filtration Rate 29.9 mL/min (90-130); Glucose 97 mg/dL (65-115); Osmolality Calculated 287 mOsm/kg (285-295); Potassium 3.6 mmol/L (3.5-5.1); Sodium 135 mmol/L (136-145)
--- NOTE | 2020-06-16 17:50 | PC.NURSE ---
Shift summary Patient remains alert this end of shift but is noted to continue to have pressured rambling speech. He has been calm and cooperative. He continues to c/o pain in the neck and upper back that is 3/10 at this time. No other needs noted this shift.
[2020-06-16] MEDS: trazodone 100 mg Tablet PO (21:00)
[2020-06-17] MEDS: TRAMadol 50 mg Tablet PO ×3 (03:05→15:09)
[2020-06-17] MEDS: sodium chloride 0.9% 1,000 ML 150 ML IV ×2 (03:09→08:33)
[2020-06-17 04:00] VITALS: BP 109/54; PULSE 89; RESP 20; TEMP 36.9; O2SAT 96
[2020-06-17 05:02] LABS: Basophils # 0.1 10^3/uL (0.0-0.1); Basophils % 1.2 %; Eosinophils # 0.4 10^3/uL (0.0-0.8); Eosinophils % 7.4 %; Hematocrit 32.9 % (42.0-52.0); Hemoglobin 10.5 g/dL (11.7-16.6); Lymphocytes # 1.7 10^3/uL (0.8-4.8); Mean Corpuscular HGB Conc 31.9 g/dL (30.0-36.0); Mean Corpuscular Hemoglobin 31.3 pg (28.0-34.0); Mean Corpuscular Volume 98.2 fL (80-94); Mean Platelet Volume 9.5 fL (7.4-10.4); Monocytes # 0.6 10^3/uL (0.2-0.9); Monocytes % 10.6 %; Neutrophils % 52.5 %; Nucleated Red Blood Cells % 0 %; Platelet Count 157 10^3/cmm (130-400); Red Blood Count 3.35 10^6/uL (4.1-5.3); Red Cell Distribution Width 13.4 % (12.1-15.1); White Blood Count 5.9 10^3/uL (4.0-10.0)
[2020-06-17 05:25] LABS: Alanine Aminotransferase 28 U/L (0-41); Albumin Level 3.3 g/dL (3.5-5.2); Alkaline Phosphatase 65 IU/L (40-130); Anion Gap 12.5 (5-19); Aspartate Amino Transferase 64 U/L (0-40); Blood Urea Nitrogen 19 mg/dL (6-20); Calcium 8.6 mg/dL (8.5-10.5); Carbon Dioxide 20 mmol/L (22-29); Chloride 108 mmol/L (98-107); Creatinine Clr Calc Pharmacy 81.4473; Globulin 2.4 g/dL (1.3-4.6); Glomerular Filtration Rate 63.3 mL/min (90-130); Glucose 110 mg/dL (65-115); Osmolality Calculated 287 mOsm/kg (285-295); Potassium 3.5 mmol/L (3.5-5.1); Sodium 137 mmol/L (136-145); Total Bilirubin 0.5 mg/dL (0.15-1.2); Total Protein 5.7 g/dL (6.6-8.7)
[2020-06-17 07:26] VITALS: BP 131/86; PULSE 80; RESP 18; TEMP 37.1; O2SAT 96
--- NOTE | 2020-06-17 08:21 | PC.RESP ---
SMOKING CESSATION INFORMATION SENT TO PATIENT.
[2020-06-17] MEDS: folic acid 1 mg Tablet PO (08:32)
[2020-06-17] MEDS: thiamine 100 mg Tablet PO (08:32)
[2020-06-17] MEDS: multivitamin therapeutic Tablet 1 TAB PO (08:32)
[2020-06-17] MEDS: nicotine 21 mg Patch 1 PATCH TRANSDERMA (08:56)
--- NOTE | 2020-06-17 11:09 | P.PN_ITS ---
Subjective Subjective: Interval history: Patient awake in bed at time of exam this morning. RN at bedside during entire exam and discussion. Patient reported that he is feeling better today. He reported some continued stress at home and stress due to being homeless. He stated that he would like to seek drug and alcohol rehabilitation. Requesting psychiatry consultation and stay in the stress unit due to his concerns Vitals/I&O/Wt Last Vital Signs Temp 98.7 F 06/17/20 07:26 Pulse 80 06/17/20 07:26 Resp 18 06/17/20 07:26 BP 131/86 06/17/20 07:26 Pulse Ox 96 06/17/20 07:26 06/16/20 06/17/20 06/17/20 22:59 06:59 14:59 Intake Total 2387.5 / 4627.5 910 / 5537.5 1370 / 1370 Output Total 600 / 600 Balance 2387.5 / 4627.5 310 / 4937.5 1370 / 1370 Weight last 48 hrs Weight 85.814 kg Weight 81.647 kg Physical Exam Const: COMMON NORMALS: patient oriented x3 and alert GENERAL APPEARANCE: cooperative ORIENTATION/CONSCIOUSNESS: Yes awake, Yes oriented to person, Yes oriented to place and Yes oriented to time HENMT: COMMON NORMALS: normocephalic and atraumatic HEAD & SCALP: n ormocephalic and atraumatic Eye: COMMON NORMALS: Equal, round and reactive pupils present PUPIL: Yes Equal, round and reactive pupils present Neck/C-Spine: COMMON NORMALS: supple GENERAL: Yes normal visual inspection Resp: COMMON NORMALS: normal respiratory effort and clear to auscultation bilaterally EFFORT & INSPECTION: Yes able to speak in complete sentences AUSCULTATION: clear to auscultation bilaterally, no rhonchi and no wheezes Cardio: COMMON NORMALS: regular rate, regular rhythm and No murmurs present (Cardio) RATE: regular rate RHYTHM: regular rhythm GI: COMMON NORMALS: non-tender INSPECTION: No abdominal distension Extremity: COMMON NORMALS: no clubbing, cyanosis or edema and no calf tenderness Neuro: COMMON NORMALS: patient oriented x3, CN's II-XII intact bilaterally, moves all extremities and no focal motor deficits SENSORIUM/ORIENTATION: Yes alert, Yes oriented to person, Yes oriented to place and Yes oriented to time SPEECH: speech normal Psych: COMMON NORMALS: mental status grossly normal and cooperative Skin: COMMON NORMALS: no rashes or lesions noted GENERAL SKIN EXAM: no rashes or lesions noted Data : 06/17/20 04:23 06/17/20 04:23 A&P Assessment and plan (1) Acute renal failure: Multifactorial believed to be secondary to NSAIDs, lisinopril, rhabdomyolysis, dehydration and amphetamine use Improved with IV fluids. BUN improved and 19 and creatinine improved to 1.2 today Medically stable for discharge or transfer to neuropsychiatric unit. Status: Acute Qualifiers: Acute renal failure type: unspecified Qualified Code(s): N17.9 - Acute kidney failure, unspecified (2) Chronic alcohol abuse: [facility] protocol with Ativan Status: Acute (3) Rhabdomyolysis: Improved with IV fluids Status: Acute Qualifiers: Rhabdomyolysis type: non-traumatic Qualified Code(s): M62.82 - Rhabdomyolysis (4) Depression: Increased stressors and requesting stay in the stress unit patient does have occasional pressured speech and some occasional paranoia. Therefore discussed with Dr. Moreno for consultation, appreciate recommendations and assistance in patient's care. Patient's renal function has improved with IV fluids, medically stable for transfer to neuropsychiatric unit if felt appropriate by psychiatrist. We will follow-up with recommendations. Status: Chronic Attestations Medical Necessity Statement*: Hospitalization due to acute kidney injury Coding Level of Care Code Acute Team Supervisor for [facility] [place] Diagnoses Acute renal failure N17.9 Acute renal failure type: unspecified Chronic alcohol abuse F10.10 Rhabdomyolysis M62.82 Rhabdomyolysis type: non-traumatic Depression F32.9
[2020-06-17 11:16] VITALS: BP 146/82; PULSE 85; RESP 20; TEMP 36.9; O2SAT 97
[2020-06-17] MEDS: heparin 5,000 unit/mL INJ 1 mL 5000 UNIT SUBCUT (11:55)
[2020-06-17] MEDS: amlodipine 5 mg Tablet 2.5 MG PO (12:40)
--- NOTE | 2020-06-17 12:51 | PC.NURSE ---
Transfer note Patient report called to SHANNA Piper in neuropysch. Patient transferring to room 152 bed 1.
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
[2020-06-17 16:00] VITALS: BP 138/76; PULSE 82; RESP 18; TEMP 37.1; O2SAT 97
[2020-06-17 19:54] VITALS: BP 150/81; PULSE 93; RESP 17; TEMP 37.7; O2SAT 99
[2020-06-17] MEDS: trazodone 100 mg Tablet PO (21:55)
[2020-06-17] MEDS: hyDROXYzine 25 mg Capsule 50 MG PO (21:58)
[2020-06-17] MEDS: acetaminophen 325 mg Tablet 650 MG PO (22:05)
--- NOTE | 2020-06-18 04:16 | PC.NURSE ---
tylenol/visteril/trazodone tylenol 650mg po given for neck pain that rated 8 on a 1-10 pain scale that was relieved and became a 3. Visteril 50mg po given for anxiety with the positive result trazodone 50mg po given for sleep and patient rested tonight.
[2020-06-18 06:00] VITALS: BP 157/88; PULSE 76; RESP 17; TEMP 36.9; O2SAT 96
[2020-06-18] MEDS: multivitamin therapeutic Tablet 1 TAB PO (09:18)
[2020-06-18] MEDS: thiamine 100 mg Tablet PO (09:18)
[2020-06-18] MEDS: nicotine 21 mg Patch 1 PATCH TRANSDERMA (09:18)
[2020-06-18] MEDS: amlodipine 5 mg Tablet 2.5 MG PO (09:19)
[2020-06-18] MEDS: nicotine 2 mg Gum BUCCAL (09:48)
[2020-06-18] MEDS: TRAMadol 50 mg Tablet PO (09:48)
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
[2020-06-18 10:33] VITALS: BP 157/88; PULSE 76; RESP 17; TEMP 36.9; O2SAT 96
[2020-06-18] MEDS: hyDROXYzine 25 mg Capsule 50 MG PO (11:41)
[2020-06-21 08:11] LABS: Alcohol, Methyl None Detected; Volatile Analysis Performed On Whole Blood
== END 2020-06-18 12:45 | disposition home or self-care (01) | DRG 897 ==
LOC: ER 09:26 → MEDSURG 10:19 → NP 06-17 13:05
PROVIDERS: Emergency Medicine; Physician Assistant; Admitting Provider Family Medicine; PCP Family Medicine; Visit Provider Family Medicine
DX: F15.129 Other stimulant abuse with intoxication, unspecified (principal); M62.82 Rhabdomyolysis; N17.9 Acute kidney failure, unspecified; Z59.0 Homelessness; F17.210 Nicotine dependence, cigarettes, uncomplicated; F32.9 Major depressive disorder, single episode, unspecified
CPT/HCPCS: 12345; 36415; 36600; 80048; 80053; 80306; 80307; 80320; 81001; 82009; 82550; 82693; 82803; 83605; 83735; 84100; 84443; 85025; 96372; 99284; J1644; J3411; J7030

== ENCOUNTER 2020-08-05 14:26 | Emergency (ER) | payer MEDICAID, SELFPAY ==
[2020-08-05 14:43] VITALS: BP 114/68; PULSE 116; RESP 18; TEMP 36.3; O2SAT 97; BMI 26.8
--- NOTE | 2020-08-05 14:52 | CTR_ITS ---
PROCEDURE INFORMATION: Exam: CT Lumbar Spine Without Contrast Exam date and time: 08/05/2020 4:41 PM Age: 55 years old Clinical indication: Other: Rle pain; Prior surgery; Surgery type: Left hip; Additional info: R radicular leg pain TECHNIQUE: Imaging protocol: Computed tomography images of the lumbar spine without contrast. Radiation optimization: All CT scans at this facility use at least one of these dose optimization techniques: automated exposure control; mA and/or kV adjustment per patient size (includes targeted exams where dose is matched to clinical indication); or iterative reconstruction. COMPARISON: MRI Lumbar Spine w/wo [id number] 12/11/2018 1:01 PM RADIATION DOSE METRICS: Total DLP (mGy-cm): 2255.46 FINDINGS: Vertebrae: Vertebral body heights are preserved. No compression fractures are noted. Vertebral alignment is physiologic. T12-L1: The intervertebral disc is normal in height. No disc bulge or disc protrusion demonstrated. No spinal canal or neural foraminal stenosis. L1-L2: The intervertebral disc is normal in height. No disc bulge or disc protrusion demonstrated. No spinal canal or neural foraminal stenosis. L2-L3: Mild disc narrowing. 5 mm posterior disc bulge. Mild hypertrophic facet joint changes. Severe spinal canal stenosis noted. Moderate bilateral neural foraminal stenosis. L3-L4: Severe disc degeneration. 6 mm posterior disc/osteophyte complex noted. Hypertrophic facet joint changes are present. There is severe spinal canal stenosis and severe bilateral neural foraminal stenosis noted. L4-L5: Severe disc degeneration. 6 mm posterior disc/osteophyte complex noted. Hypertrophic facet joint changes are present. There is severe spinal canal stenosis and severe bilateral neural foraminal stenosis noted. L5-S1: Severe disc degeneration with vacuum disc phenomenon. 3 mm posterior disc protrusion. No central spinal canal stenosis. There is severe bilateral neural foraminal stenosis due to hypertrophic facet joint changes. Soft tissues: The paraspinous soft tissues appear unremarkable. CT/CT lumbar spine wo con* [id number] IMPRESSION: 1. No acute fracture demonstrated. 2. 5 mm posterior disc bulge at L2-L3. This is associated with severe spinal canal stenosis and moderate bilateral foraminal stenosis. 3. Severe disc degeneration and 6 mm posterior disc/osteophyte complex at L3-L4. This is associated with severe spinal canal stenosis and severe bilateral foraminal stenosis. 4. Severe disc degeneration. 6 mm posterior disc/osteophyte complex noted. Hypertrophic facet joint changes are present. There is severe spinal canal stenosis and severe bilateral neural foraminal stenosis noted. A severe disc degeneration and 6 mm posterior disc/osteophyte complex at L4-L5. This is associated with severe spinal canal stenosis and severe bilateral neural foraminal stenosis. 5. Severe disc degeneration and 3 mm posterior disc protrusion at L5-S1. There is no associated spinal canal stenosis. Severe bilateral foraminal stenosis noted at this level due to hypertrophic facet joint changes. 6. Findings are similar to MRI lumbar spine of 12/11/2018. Radiation Dose CTDIVOL = (mGy): DLP = 2255.46 (mGy-cm)
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
--- NOTE | 2020-08-05 16:27 | USR_ITS ---
PROCEDURE INFORMATION: Exam: US Duplex Right Lower Extremity Veins, Limited Exam date and time: 08/05/2020 4:32 PM Age: 55 years old Clinical indication: Pain; Leg, lower; Right; Additional info: Rle pain, varicose veins TECHNIQUE: Imaging protocol: Real-time Duplex ultrasound of the Right Lower Extremity with 2-D fermin scale, color Doppler flow and spectral waveform analysis with image documentation. Limited exam was focused on the right lower extremity veins. COMPARISON: No relevant prior studies available. FINDINGS: Right deep veins: Unremarkable. The common femoral, femoral, proximal profunda femoral and popliteal veins are patent without thrombus. Normal Doppler waveforms. Normal compressibility and/or augmentation response. Right superficial veins: Unremarkable. Saphenofemoral junction is patent without thrombus. Soft tissues: Unremarkable. US/[place] [id number] IMPRESSION: No evidence of deep vein thrombosis, right lower extremity.
[2020-08-05] MEDS: TRAMadol 50 mg Tablet PO (17:55)
[2020-08-05] MEDS: predniSONE 20 mg Tablet 60 MG PO (17:56)
[2020-08-05 18:31] LABS: Add Urine Microscopic? NO
[2020-08-05 19:04] LABS: Bilirubin Urine Neg (Negative); Blood Urine Neg (Negative); Glucose Urine UA Norm (Normal); Ketones Urine Negative (Negative); Leukocyte Esterase Urine Negative (Negative); Nitrate Urine Negative (Negative); Protein Urine Neg (Negative); Urine Appearance Clear (CLEAR); Urine Color Yellow (Yellow); Urobilinogen Urine Norm (Negative); pH Urine 7 (5-7)
== END 2020-08-05 17:59 | disposition home or self-care (01) ==
PROVIDERS: Nurse Practitioner Family; Emergency Provider Nurse Practitioner Family; PCP Family Medicine
DX: M79.604 Pain in right leg (principal); F17.210 Nicotine dependence, cigarettes, uncomplicated
CPT/HCPCS: 12345; 72131; 81003; 93971; 99282; 99283; J7512

== ENCOUNTER → 2020-08-23 14:51 | Outpatient (BNVA) | payer MEDICAID, SELFPAY | PROVIDERS: PCP Family Medicine Adult Medicine; Visit Provider Family Medicine Adult Medicine | DX: I10 Essential (primary) hypertension (principal); N18.2 Chronic kidney disease, stage 2 (mild); S02.609A Fracture of mandible, unspecified, initial encounter for closed fracture; M79.651 Pain in right thigh | CPT/HCPCS: 80053; 83036; 84443; 85025 ==

== ENCOUNTER → 2021-03-07 09:13 | Outpatient (BNVA) | payer MEDICAID, SELFPAY | PROVIDERS: PCP Family Medicine Adult Medicine; Referring Provider Family Medicine Adult Medicine; Visit Provider Orthopaedic Surgery | DX: M54.16 Radiculopathy, lumbar region (principal); M54.2 Cervicalgia | CPT/HCPCS: 72050; 72110; 73502 ==

== ENCOUNTER → 2021-03-13 08:27 | Outpatient (BNVA) | payer MEDICAID, SELFPAY | PROVIDERS: PCP Family Medicine Adult Medicine; Referring Provider Orthopaedic Surgery; Visit Provider Anesthesiology Pain Medicine | DX: Z02.89 Encounter for other administrative examinations (principal); M54.41 Lumbago with sciatica, right side; M48.062 Spinal stenosis, lumbar region with neurogenic claudication; M54.16 Radiculopathy, lumbar region; M47.816 Spondylosis without myelopathy or radiculopathy, lumbar region; M54.2 Cervicalgia | CPT/HCPCS: 99205 ==

== ENCOUNTER → 2021-03-24 10:59 | Outpatient (BNVA) | payer MEDICAID, SELFPAY | PROVIDERS: PCP Family Medicine Adult Medicine; Visit Provider Anesthesiology Pain Medicine | DX: G89.29 Other chronic pain (principal); M48.062 Spinal stenosis, lumbar region with neurogenic claudication | CPT/HCPCS: 62323; J1040; J3490 ==

== ENCOUNTER → 2021-05-02 12:40 | Outpatient (BNVA) | payer MEDICAID, SELFPAY | PROVIDERS: PCP Family Medicine Adult Medicine; Visit Provider Anesthesiology Pain Medicine | DX: M48.062 Spinal stenosis, lumbar region with neurogenic claudication (principal); M54.16 Radiculopathy, lumbar region; M47.816 Spondylosis without myelopathy or radiculopathy, lumbar region; M79.604 Pain in right leg; M79.605 Pain in left leg; M54.2 Cervicalgia; M79.601 Pain in right arm; M79.602 Pain in left arm | CPT/HCPCS: 99214 ==

== ENCOUNTER → 2021-05-10 13:56 | Outpatient (BNVA) | payer MEDICAID, SELFPAY | PROVIDERS: PCP Family Medicine Adult Medicine; Visit Provider Anesthesiology Pain Medicine | DX: M25.551 Pain in right hip (principal); M54.16 Radiculopathy, lumbar region; M48.062 Spinal stenosis, lumbar region with neurogenic claudication | CPT/HCPCS: 20610; 77002; J1030; J3490 ==

== ENCOUNTER → 2021-05-25 11:00 | Outpatient (BNVA) | payer MEDICAID, SELFPAY | PROVIDERS: PCP Family Medicine Adult Medicine; Visit Provider Anesthesiology Pain Medicine | DX: M48.062 Spinal stenosis, lumbar region with neurogenic claudication (principal); M54.16 Radiculopathy, lumbar region; M47.816 Spondylosis without myelopathy or radiculopathy, lumbar region; G62.9 Polyneuropathy, unspecified; M79.604 Pain in right leg; M79.605 Pain in left leg; M54.2 Cervicalgia; M79.601 Pain in right arm; M79.602 Pain in left arm | CPT/HCPCS: 99214 ==

== ENCOUNTER 2021-06-13 18:50 | Emergency (ER) | payer MEDICAID, SELFPAY ==
[2021-06-13 19:00] VITALS: BP 120/97; PULSE 114; RESP 27; TEMP 39.3; O2SAT 95; BMI 27.7
[2021-06-13 19:12] VITALS: BP 120/67; PULSE 109; RESP 21; TEMP 37.6; O2SAT 93
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
[2021-06-13] MEDS: acetaminophen 325 mg Tablet 650 MG PO (19:30)
[2021-06-13] MEDS: sodium chloride 0.9% 1,000 ML 999 ML IV (19:30)
[2021-06-13 19:42] VITALS: BP 142/92; O2SAT 100
[2021-06-13 19:45] LABS: Basophils # 0.1 10^3/uL (0.0-0.1); Basophils % 0.4 %; Hematocrit 36.3 % (42.0-52.0); Hemoglobin 11.8 g/dL (11.7-16.6); Lymphocytes # 1.5 10^3/uL (0.8-4.8); Lymphocytes % 6.7 %; Mean Corpuscular HGB Conc 32.5 g/dL (30.0-36.0); Mean Corpuscular Hemoglobin 30.2 pg (28.0-34.0); Mean Corpuscular Volume 92.8 fl (80-94); Mean Platelet Volume 8.9 fL (7.4-10.4); Monocytes # 1.8 10^3/uL (0.2-0.9); Monocytes % 8.3 %; Neutrophils # 18.72 10^3/uL (1.8-7.7); Neutrophils % 84.1 %; Nucleated Red Blood Cells % 0 %; Platelet Count 366 10^3/cmm (130-400); Red Blood Count 3.91 10^6/uL (4.1-5.3); Red Cell Distribution Width 13.9 % (12.1-15.1); White Blood Count 22.3 10^3/uL (4.0-10.0)
[2021-06-13 20:06] LABS: Alanine Aminotransferase 13 U/L (0-41); Albumin Level 4.1 g/dL (3.5-5.2); Alkaline Phosphatase 51 IU/L (40-130); Anion Gap 17.9 (5-19); Aspartate Amino Transferase 15 U/L (0-40); Blood Urea Nitrogen 27 mg/dL (6-20); Carbon Dioxide 20 mmol/L (22-29); Chloride 97 mmol/L (98-107); Glomerular Filtration Rate 42.2 mL/min (90-130); Glucose 92 mg/dL (65-115); Osmolality Calculated 275 mOsm/kg (285-295); Potassium 4.9 mmol/L (3.5-5.1); Sodium 130 mmol/L (136-145); Total Bilirubin 0.2 mg/dL (0.15-1.2); Total Protein 7.1 g/dL (6.6-8.7)
--- NOTE | 2021-06-13 20:07 | CTR_ITS ---
PROCEDURE INFORMATION: Exam: CT Head Without Contrast Exam date and time: 06/13/2021 8:07 PM Age: 56 years old Clinical indication: Altered mental status/memory loss and dizziness and fever; Confusion or disorientation TECHNIQUE: Imaging protocol: Computed tomography of the head without contrast. Sagittal and coronal reformatted images were created and reviewed. Radiation optimization: All CT scans at this facility use at least one of these dose optimization techniques: automated exposure control; mA and/or kV adjustment per patient size (includes targeted exams where dose is matched to clinical indication); or iterative reconstruction. COMPARISON: MR head wo con* [id number] 03/01/2017 9:55 AM RADIATION DOSE METRICS: Total DLP (mGy-cm): 966.85 FINDINGS: Brain: No acute intracranial hemorrhage. No acute infarct. No intra-axial or extra-axial masses. Mendoza-white matter differentiation is preserved. No cerebral edema. No extra-axial fluid collections. No midline shift. No evidence for Chiari 1 malformation. Incidental note of a heidi cisterna magna. 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 Cerebral ventricles: No hydrocephalus. Paranasal sinuses: Mild mucoperiosteal thickening in the frontal sinuses and moderate mucoperiosteal thickening in the visualized ethmoid sinuses. Mastoid air cells: Small amount of fluid in the right and left mastoid air cells. Orbital cavity: No acute abnormality in the visualized orbits. Vasculature: Mild atherosclerotic changes in the visualized arteries. Bones/joints: No acute fracture. Soft tissues: No acute abnormality of the extracranial soft tissues. CT/CT head wo con* [id number] IMPRESSION: 1. No acute abnormality of the brain. 2. 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 3. Small amount of fluid in the right and left mastoid air cells. 4. Incidental/nonacute findings are listed in the report. Radiation Dose CTDIVOL = (mGy): DLP = 966.85 (mGy-cm)
[2021-06-13 20:09] LABS: Alcohol Level < 10 mg/dL (0-10)
--- NOTE | 2021-06-13 20:15 | CTR_ITS ---
PROCEDURE INFORMATION: Exam: CT Abdomen And Pelvis Without Contrast Exam date and time: 06/13/2021 8:15 PM Age: 56 years old Clinical indication: Abdominal pain and other: Chronic back pain; Prior surgery; Surgery type: Spleen, left hip; Additional info: Flank pain TECHNIQUE: Imaging protocol: Computed tomography of the abdomen and pelvis without contrast. Radiation optimization: All CT scans at this facility use at least one of these dose optimization techniques: automated exposure control; mA and/or kV adjustment per patient size (includes targeted exams where dose is matched to clinical indication); or iterative reconstruction. COMPARISON: CT Abdomen/Pelvis o [id number] 03/02/2017 6:06 PM RADIATION DOSE METRICS: Total DLP (mGy-cm): 1828.27 FINDINGS: Lungs: Mild basilar atelectasis/scarring. No consolidation. Mediastinal space: Small sliding hiatal hernia. Liver: Normal. Gallbladder and bile ducts: Normal. No calcified stones. No ductal dilation. Pancreas: Normal. No ductal dilation. Spleen: There is a small amount of splenic tissue in the left upper quadrant. Adrenal glands: Normal. No mass. Kidneys and ureters: Normal. No hydronephrosis or stones. Stomach and bowel: Mild sigmoid diverticulosis. No evidence of active diverticulitis. Appendix: No evidence of appendicitis. Intraperitoneal space: No free air. No significant fluid collection. Vasculature: No abdominal aortic aneurysm. Lymph nodes: Mildly enlarged left external iliac nodes measuring up to 14 mm in short axis similar to 2017. Urinary bladder: Unremarkable as visualized. Reproductive: Unremarkable as visualized. Bones/joints: Partially imaged left proximal femur sagrario. No evidence of acute or aggressive osseous lesion. Lumbar degenerative changes with high-grade stenosis of the central canal at L2 through L5. Soft tissues: Small fat containing umbilical hernia. CT/CT abdomen pelvis con [id number] IMPRESSION: 1. No acute findings on non-contrast CT. 2. Chronic and incidental findings as described. Radiation Dose CTDIVOL = (mGy): DLP = 1828.27 (mGy-cm)
[2021-06-13 20:17] LABS: Amphetamines Screen Urine Negative (Negative); Barbiturates Screen Urine Negative (Negative); Benzodiazepines Screen Urine Negative (Negative); Cocaine Screen Urine Negative (Negative); Opiate Screen Urine Negative (Negative); PCP Screen Urine Negative (Negative); THC Screen Urine Negative (Negative)
[2021-06-13 20:30] LABS: SARS Covid-2 Antigen Negative (Negative)
[2021-06-13 20:46] VITALS: BP 99/67; PULSE 108; TEMP 37.6; O2SAT 94
[2021-06-13] MEDS: cefTRIAXone 1,000 MG in sodium chloride 0.9% (plus) 50 ML 100 MG IV (21:28)
[2021-06-13] MEDS: sodium chloride 0.9% 500 ML IV (21:28)
[2021-06-15 14:27] LABS: Lyme AB Screen <0.90 index
[2021-06-17 21:28] LABS: E. Chaffeensis AB IGG <1:64; E. Chaffeensis AB IGM <1:20
[2021-06-20 16:36] LABS: RMSF IGG DETECTED; RMSF IGM NOT DETECTED
== END 2021-06-13 22:37 | disposition home or self-care (01) ==
PROVIDERS: Emergency Provider Emergency Medicine; PCP Family Medicine Adult Medicine
DX: D72.829 Elevated white blood cell count, unspecified (principal); T14.8XXA Other injury of unspecified body region, initial encounter; W57.XXXA Bitten or stung by nonvenomous insect and other nonvenomous arthropods, initial encounter; I12.9 Hypertensive chronic kidney disease with stage 1 through stage 4 chronic kidney disease, or unspecified chronic kidney disease; N18.2 Chronic kidney disease, stage 2 (mild); F17.210 Nicotine dependence, cigarettes, uncomplicated; Z20.822 Contact with and (suspected) exposure to COVID-19
CPT/HCPCS: 36415; 70450; 74176; 80053; 80306; 80307; 83605; 85025; 86618; 86666; 86757; 87040; 87426; 96361; 96365; 99284; J0696; J7030; J7040

== ENCOUNTER 2021-06-20 20:59 | Emergency (ER) | payer MEDICAID, SELFPAY ==
[2021-06-20 21:01] VITALS: BP 94/64; PULSE 84; RESP 20; TEMP 36.7; O2SAT 97
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
--- NOTE | 2021-06-20 21:17 | PC.NURSE ---
pt states 'hes been trying to kill himself for the last ten years by drinking'
[2021-06-20 21:40] LABS: Basophils # 0.1 10^3/uL (0.0-0.1); Basophils % 0.8 %; Eosinophils # 0.2 10^3/uL (0.0-0.8); Eosinophils % 0.9 %; Hematocrit 38.6 % (42.0-52.0); Hemoglobin 12.8 g/dL (11.7-16.6); Lymphocytes # 3.1 10^3/uL (0.8-4.8); Lymphocytes % 18.7 %; Mean Corpuscular HGB Conc 33.2 g/dL (30.0-36.0); Mean Corpuscular Hemoglobin 29.6 pg (28.0-34.0); Mean Corpuscular Volume 89.1 fl (80-94); Mean Platelet Volume 8.6 fL (7.4-10.4); Monocytes # 2.9 10^3/uL (0.2-0.9); Monocytes % 17.1 %; Neutrophils # 10.26 10^3/uL (1.8-7.7); Neutrophils % 61.6 %; Nucleated Red Blood Cells % 0 %; Platelet Count 521 10^3/cmm (130-400); Red Blood Count 4.33 10^6/uL (4.1-5.3); Red Cell Distribution Width 13.6 % (12.1-15.1); White Blood Count 16.7 10^3/uL (4.0-10.0)
--- NOTE | 2021-06-20 21:40 | ECG_ITS ---
[facility] Test Date: 2021-06-20 Pat Name: Hayes Cartagena Department: Room: Gender: Male Placement Manager: : 1965 Requested By: Russell Arechiga Order Number: [id number] Caldwell MD: Mathieu Mcdonald M.D. Measurements Intervals [place] Rate: 81 P: 76 MD: 173 QRS: 85 QRSD: 110 T: 70 QT: 396 QTc: 462 Interpretive Statements SINUS RHYTHM Diffuse ST changes most likely represent early repolarization compared to ECG 05/14/2020 15:51:34 ST (T wave) deviation now present Myocardial infarct finding now present Intraventricular conduction delay no longer present Electronically Signed On 06-21-2021 22:47:20 CDT by Mathieu Mcdonald M.D. [id number]
[2021-06-20 21:43] LABS: Acetaminophen 11.7 ug/mL (10-30); Alanine Aminotransferase 11 U/L (0-41); Albumin Level 4.4 g/dL (3.5-5.2); Alcohol Level 243 mg/dL (0-10); Alkaline Phosphatase 57 IU/L (40-130); Anion Gap 24.5 (5-19); Aspartate Amino Transferase 17 U/L (0-40); Blood Urea Nitrogen 14 mg/dL (6-20); Calcium 9.3 mg/dL (8.5-10.5); Carbon Dioxide 14 mmol/L (22-29); Chloride 96 mmol/L (98-107); Globulin 3.3 g/dL (1.3-4.6); Glomerular Filtration Rate 39.5 mL/min (90-130); Glucose 94 mg/dL (65-115); Osmolality Calculated 272 mOsm/kg (285-295); Potassium 3.5 mmol/L (3.5-5.1); Sodium 131 mmol/L (136-145); Total Bilirubin 0.3 mg/dL (0.15-1.2); Total Protein 7.7 g/dL (6.6-8.7)
--- NOTE | 2021-06-20 21:44 | XRR_ITS ---
PROCEDURE INFORMATION: Exam: XR Chest Exam date and time: 06/20/2021 9:44 PM Age: 56 years old Clinical indication: Shortness of breath; Additional info: SOB TECHNIQUE: Imaging protocol: XR of the chest. Views: 1 view. COMPARISON: CR XR chest 1V portable [id number] 03/10/2020 5:43 PM FINDINGS: Lungs: Emphysematous changes. Pleural spaces: Unremarkable. No pleural effusion. No pneumothorax. Heart/Mediastinum: Unremarkable. No cardiomegaly. Bones/joints: Unremarkable. XR/XR chest 1V portable [id number] IMPRESSION: 1. Emphysematous changes. 2. Negative for infiltrate Radiation Dose CTDIVOL = (mGy): DLP = (mGy-cm)
[2021-06-20 21:45] LABS: Salicylate < 0.3 mg/dL (3-10)
[2021-06-20 22:10] VITALS: BP 94/64; PULSE 87; RESP 15; O2SAT 95
[2021-06-20 22:12] LABS: Troponin(5th) Baseline 19 ng/L (0-15)
[2021-06-20] MEDS: sodium chloride 0.9% 1,000 ML 999 ML IV (22:17)
[2021-06-20 22:22] LABS: Creatine Phosphokinase 159 U/L (39-308)
[2021-06-20 23:23] VITALS: BP 83/53
[2021-06-20 23:24] VITALS: BP 110/76; BP 111/71; BP 119/72; PULSE 89; PULSE 93; PULSE 95
[2021-06-20 23:36] LABS: Troponin 5 2HR 15.02 ng/L (0-15)
[2021-06-20 23:44] LABS: Troponin 5 2HR Delta -3.98 ABS# (0-10)
[2021-06-21] MEDS: sodium chloride 0.9% 1,000 ML 999 ML IV (00:39)
[2021-06-21 01:46] VITALS: BP 83/62
[2021-06-21 01:47] LABS: Anion Gap 19.5 (5-19); Blood Urea Nitrogen 13 mg/dL (6-20); Calcium 8.3 mg/dL (8.5-10.5); Carbon Dioxide 16 mmol/L (22-29); Chloride 101 mmol/L (98-107); Glomerular Filtration Rate 48.8 mL/min (90-130); Glucose 80 mg/dL (65-115); Osmolality Calculated 275 mOsm/kg (285-295); Potassium 3.5 mmol/L (3.5-5.1); Sodium 133 mmol/L (136-145)
[2021-06-21 01:50] LABS: Acetaminophen < 5.0 ug/mL (10-30)
[2021-06-21 02:24] LABS: Alcohol Level 130 mg/dL (0-10)
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
[2021-06-21 04:29] VITALS: BP 111/67; PULSE 93; O2SAT 96
== END 2021-06-21 04:32 | disposition home or self-care (01) ==
PROVIDERS: Nurse Practitioner Family; Emergency Provider Emergency Medicine; PCP Family Medicine Adult Medicine
DX: F10.99 Alcohol use, unspecified with unspecified alcohol-induced disorder (principal); E86.0 Dehydration; Z59.00 Homelessness unspecified; I12.9 Hypertensive chronic kidney disease with stage 1 through stage 4 chronic kidney disease, or unspecified chronic kidney disease; N18.2 Chronic kidney disease, stage 2 (mild); F17.210 Nicotine dependence, cigarettes, uncomplicated; Y90.8 Blood alcohol level of 240 mg/100 ml or more
CPT/HCPCS: 71045; 80048; 80053; 80307; 82550; 84484; 85025; 93005; 96360; 96361; 99284; J7030

== ENCOUNTER 2021-06-21 09:59 | Emergency (ER) | payer MEDICAID, SELFPAY ==
[2021-06-21 10:10] VITALS: BP 115/69; PULSE 83; RESP 19; TEMP 36.7; O2SAT 98; BMI 28.2
[2021-06-21 10:15] VITALS: BP 107/70; BP 109/77; BP 111/74; PULSE 80; PULSE 85; PULSE 90
--- NOTE | 2021-06-21 10:15 | ECG_ITS ---
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 Measurements Intervals [place] Rate: 79 P: 68 OK: 171 QRS: 71 QRSD: 109 T: 61 QT: 383 QTc: 440 Interpretive Statements SINUS RHYTHM WITH SINUS ARRHYTHMIA Compared to ECG 06/20/2021 21:57:51 ST (T wave) deviation no longer present Myocardial infarct finding no longer present Electronically Signed On 06-21-2021 23:01:39 CDT by Mathieu Mcdonald M.D. [id number]
[2021-06-21 10:17] VITALS: BP 115/68; PULSE 102; RESP 18; O2SAT 98
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
[2021-06-21 10:43] LABS: Basophils # 0.1 10^3/uL (0.0-0.1); Basophils % 1.4 %; Eosinophils # 0.1 10^3/uL (0.0-0.8); Hematocrit 38.6 % (42.0-52.0); Hemoglobin 12.8 g/dL (11.7-16.6); Lymphocytes # 2.5 10^3/uL (0.8-4.8); Lymphocytes % 35.5 %; Mean Corpuscular HGB Conc 33.2 g/dL (30.0-36.0); Mean Corpuscular Hemoglobin 30.1 pg (28.0-34.0); Mean Corpuscular Volume 90.8 fl (80-94); Mean Platelet Volume 8.5 fL (7.4-10.4); Monocytes % 14.1 %; Neutrophils # 3.28 10^3/uL (1.8-7.7); Neutrophils % 46.3 %; Nucleated Red Blood Cells % 0 %; Platelet Count 499 10^3/cmm (130-400); Red Blood Count 4.25 10^6/uL (4.1-5.3); Red Cell Distribution Width 13.9 % (12.1-15.1); White Blood Count 7.1 10^3/uL (4.0-10.0)
[2021-06-21] MEDS: sodium chloride 0.9% 1,000 ML 999 ML IV (10:50)
[2021-06-21 10:59] LABS: Add Urine Microscopic? NO; Charge for UA Resulting for Rev
[2021-06-21 11:13] LABS: Bilirubin Urine Neg (Negative); Blood Urine Neg (Negative); Glucose Urine UA Norm (Normal); Ketones Urine Negative (Negative); Leukocyte Esterase Urine Negative (Negative); Nitrate Urine Negative (Negative); Protein Urine Neg (Negative); Urine Appearance Clear (CLEAR); Urine Color Yellow (Yellow); Urobilinogen Urine Norm (Negative); pH Urine 5 (5-7)
[2021-06-21 11:19] LABS: Amphetamines Screen Urine Negative (Negative); Barbiturates Screen Urine Negative (Negative); Benzodiazepines Screen Urine Negative (Negative); Cocaine Screen Urine Negative (Negative); Opiate Screen Urine Negative (Negative); PCP Screen Urine Negative (Negative); THC Screen Urine Positive (Negative)
[2021-06-21 11:34] LABS: Alanine Aminotransferase 11 U/L (0-41); Albumin Level 4.2 g/dL (3.5-5.2); Alcohol Level 120 mg/dL (0-10); Alkaline Phosphatase 57 IU/L (40-130); Blood Urea Nitrogen 13 mg/dL (6-20); Calcium 9.2 mg/dL (8.5-10.5); Carbon Dioxide 19 mmol/L (22-29); Chloride 103 mmol/L (98-107); Globulin 2.9 g/dL (1.3-4.6); Glomerular Filtration Rate 69.8 mL/min (90-130); Glucose 79 mg/dL (65-115); Osmolality Calculated 279 mOsm/kg (285-295); Sodium 135 mmol/L (136-145); Total Bilirubin 0.3 mg/dL (0.15-1.2); Total Protein 7.1 g/dL (6.6-8.7)
[2021-06-21 11:35] LABS: Anion Gap 17.8 (5-19); Aspartate Amino Transferase 21 U/L (0-40); Potassium 4.8 mmol/L (3.5-5.1)
[2021-06-21 11:58] VITALS: BP 134/88; PULSE 99; RESP 20; O2SAT 97
== END 2021-06-21 11:58 | disposition home or self-care (01) ==
PROVIDERS: Emergency Provider Emergency Medicine; PCP Family Medicine Adult Medicine
DX: F10.10 Alcohol abuse, uncomplicated (principal); I12.9 Hypertensive chronic kidney disease with stage 1 through stage 4 chronic kidney disease, or unspecified chronic kidney disease; N18.2 Chronic kidney disease, stage 2 (mild); F17.210 Nicotine dependence, cigarettes, uncomplicated
CPT/HCPCS: 80053; 80306; 80307; 81003; 85025; 93005; 96360; 99283; J7030

== ENCOUNTER 2021-06-21 16:11 | Outpatient (CLI) | payer MEDICAID, SELFPAY ==
--- NOTE | 2021-06-21 16:45 | MR_ITS ---
WS: [id number] MRI LUMBAR SPINE NONCONTRAST HISTORY: M48.062 - Spinal stenosis, lumbar region with neurogenic ... COMPARISON: 12/03/2018 and 11/11/2018 TECHNIQUE: Sagittal and axial multisequence imaging is submitted. Mild cervical spondylitic changes without cord compression. Mild increase in thoracic kyphosis. Straightening and mild LEFT curvature lumbar spine. No marrow edema. Extensive fatty replacement of t he marrow within L3 and L4 the superior endplate of L5. Severe degenerative disc disease and narrowing extending from L2-3 to L5-S1. Conus terminates normally at L1. L1-L2: Normal. L2-L3: L2 retrolisthesis by 2 mm. Osteophytic ridging around the endplates with asymmetric disc bulgi ng to the LEFT. LEFT paracentral disc protrusion with osteophytosis encroaching into the LEFT lateral thecal sac and LEFT subarticular recess. Mild deformity of the LEFT lateral thecal sac. Mild bilater al foraminal stenosis. Mild central stenosis. L3-L4: Diffuse osteophytic ridging and annular disc bulging. Mild ligamentum flavum hypertrophy and m ild facet arthritis. L3 retrolisthesis is contributing also to mild central and bilateral foraminal s tenosis and subarticular recess narrowing. L4-L5: Diffuse osteophytic ridging and annular disc bulging. Large disc osteophyte complex extends ce ntrally and into the LEFT lateral recess. Posterior displacement of the LEFT thecal sac. Significant disc and osteophyte encroachment upon the traversing L5 nerve roots bilaterally but LEFT greater than RIGHT. There is mass effect and effacement of the ventral thecal sac. Findings contributing to mild central stenosis with moderate to severe bilateral lateral recess and subarticular recess stenosis. M oderate bilateral facet joint arthritis. Moderate LEFT and mild RIGHT foraminal stenosis. L5-S1: Diffuse moderate annular disc bulging and osteophytic ridging. Mild encroachment upon the vent ral thecal sac. No displacement of the S1 nerve roots. Severe bilateral subarticular recess and renae inal narrowing. Most significant stenosis in the LEFT foramen. Severe bilateral facet joint arthritis . MR/MR lumbar spine wo con* [id number] IMPRESSION: 1. Severe degenerative disc disease and osteophytosis throughout the majority of the lumbar spine with progression since 2019. 2. Severe bilateral subarticular recess and foraminal stenosis, LEFT greater t cantrell RIGHT at L5-S1. 3. Extensive disc osteophyte disease at L4-5 causing a mild central stenosis w ith moderate to severe bilateral lateral recess and subarticular recess stenosi s. Moderate LEFT and mild RIGHT foraminal stenosis at L4-5. Significant contact on the traversing L5 nerve roots, LEFT greater than RIGHT. 4. Mild central, bilateral foraminal and subarticular recess stenosis at L3-4. 5. Mild central and bilateral foraminal stenosis at L2-3. 6. LEFT paracentral disc osteophyte complex at L2-3 causing posterior displace ment of the traversing L3 nerve root.
== END 2021-06-21 16:12 | disposition home or self-care (01) ==
LOC: RADSHAW 16:14
PROVIDERS: PCP Family Medicine Adult Medicine; Visit Provider Orthopaedic Surgery
DX: M48.062 Spinal stenosis, lumbar region with neurogenic claudication (principal); M51.36 Other intervertebral disc degeneration, lumbar region; M25.78 Osteophyte, vertebrae
CPT/HCPCS: 72148

== ENCOUNTER → 2021-07-06 16:05 | Outpatient (BNVA) | payer MEDICAID, SELFPAY | PROVIDERS: PCP Family Medicine Adult Medicine; Visit Provider Physician Assistant | DX: M54.16 Radiculopathy, lumbar region (principal); M43.16 Spondylolisthesis, lumbar region | CPT/HCPCS: 72110 ==

== ENCOUNTER 2021-08-16 05:51 | Day surgery (SDC) | payer MEDICAID, SELFPAY ==
[2021-08-09 08:21] VITALS: BMI 27.1
[2021-08-09 09:09] LABS: Basophils # 0.1 10^3/uL (0.0-0.1); Basophils % 0.7 %; Eosinophils # 0.3 10^3/uL (0.0-0.8); Hematocrit 42.6 % (42.0-52.0); Hemoglobin 13.5 g/dL (11.7-16.6); Lymphocytes # 2.7 10^3/uL (0.8-4.8); Lymphocytes % 29.7 %; Mean Corpuscular HGB Conc 31.7 g/dL (30.0-36.0); Mean Corpuscular Volume 91.6 fl (80-94); Mean Platelet Volume 8.9 fL (7.4-10.4); Monocytes # 1.4 10^3/uL (0.2-0.9); Monocytes % 15.7 %; Neutrophils # 4.53 10^3/uL (1.8-7.7); Neutrophils % 50.5 %; Nucleated Red Blood Cells % 0 %; Platelet Count 327 10^3/cmm (130-400); Red Blood Count 4.65 10^6/uL (4.1-5.3); Red Cell Distribution Width 14.7 % (12.1-15.1)
[2021-08-09 09:14] LABS: Blood Urea Nitrogen 8 mg/dL (6-20); Calcium 8.5 mg/dL (8.5-10.5); Carbon Dioxide 20 mmol/L (22-29); Chloride 95 mmol/L (98-107); Glomerular Filtration Rate 100.7 mL/min (90-130); Glucose 91 mg/dL (65-115); Osmolality Calculated 270 mOsm/kg (285-295); Sodium 131 mmol/L (136-145)
--- NOTE | 2021-08-09 09:16 | SUR.PREOP ---
patient states that he is homeless and does not have a place to go after surgery or a ride to somewhere else after surgery. patient says he wants to go to a detention after surgery. i informed him that patients typically go home outpatient after this procedure. i notified dr nice that the patient wanted admitted to a detention after surgery and dr nice said he could not do that for this procedure. i told the patient this. he said he would just be discharged to the street then. i told him we are not able to do that either. he became very angry and said that we have no choice. i told him we are not able to d/c patients to the street with no one with them after surgery. he again said we have no choice and that we will do that. I told him Dr. nice will not keep him on the schedule if he does not have someone to drive him. He then said he would have someone to discharge him to. I confirmed again that he would have someone here with him when he arrives 08/16 for surgery that will be who drives him after surgery and he said yes. all of this has been relayed to dr. nice. we will make sure patient has someone to accompany him at d/c when he arrives 08/16 before we will get him ready.
[2021-08-10 20:23] LABS: Quest SARS-CoV-2 RNA NOT DETECTED (NOT DETECTED)
--- NOTE | 2021-08-16 | SCC_ITS ---
Procedure Done: 1. Bilateral L2/3 laminectomy with partial faceectomies 2. Bilateral L3/4 laminectomy with partial faceectomies 3. Bilateral L4/5 laminectomy with partial faceectomies 25.2 seconds of fluoroscopic guidance, for a cumulative dose of 11.04 mGy, was provided to Dr. Pressley by the radiology department. C-arm images of the lumbar spine were saved for the patient's permanent record. [facility]
--- NOTE | 2021-08-16 | XR_ITS ---
WS: [id number] Lumbar spine, C-arm fluoroscopy, 08/16/2021 Clinical Data: Decompression Comparison: None. Findings: Dr. Pressley performed a lumbar decompression. XR/XR lumbar spine 1V [id number] Impression: Lumbar decompression.
[2021-08-16 06:02] VITALS: BP 164/108; PULSE 99; RESP 18; TEMP 36.8; O2SAT 97
[2021-08-16] MEDS: sodium chloride 0.9% 1,000 ML 30 ML IV (06:28)
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
--- NOTE | 2021-08-16 08:35 | PM.OP ---
Operative Report Date of procedure: August 16, 2021 Pre-op Diagnosis: Lumbar stenosis with neurogenic claudication Post-op diagnosis: same Procedure Done: 1. Bilateral L2/3 laminectomy with partial faceectomies 2. Bilateral L3/4 laminectomy with partial faceectomies 3. Bilateral L4/5 laminectomy with partial faceectomies Surgeon: Jeovany Pressley Beam Warper: Chung Pradhan Beam Warper: The surgical device sales representative, Chung Pradhan, PAC was needed for his expertise under the microscope. He was important and necessary throughout the procedure to complete in a safe and timely manner. He assisted with patient positioning prepping and draping tissue retraction suctioning of the operative field protection of the dural sac and tissue closure Anesthesia: General Estimated blood loss (mL): 20 Condition: stable Disposition: PACU Procedure: 1. Bilateral L2/3 laminectomy with partial facetectomies 2. Bilateral L3/4 laminectomy with partial facetectomies 3. Bilateral L4/5 laminectomy with partial facetectomies Patient is brought to the operative suite. After undergoing anesthesia they are placed in the prone position. All areas of impingement are well padded. Patient is then prepped and draped in the normal sterile fashion. A skin incision is made over the L2/3 level. This is confirmed under c-arm guidance. A series of dilators are passed and the tubular retractor is docked on the L2 lamina. A bovie is used to clear the soft tissue off the lamina and the L 2/3 facet joint. A high speed nimo is then used to perform the laminectomy and take down the medial aspect of the L 2/3 facet joint. A kerrison rongeure was then used to take down the remaining lamina and smooth the edged of the laminectomy up to the point where the ligamentum flavum attaches. Attention was then brought to the medial aspect of the facet joint. The remaining medial aspect of the superior and inferior aspect of the facet joint were taken down with the kerrison from the pedicle of L2 to L 3. The facet joint had significant hypertrophy. Attention was then brought to the Ligamentum Flavum. The ligament was taken down from the lamina of L2 to L3 and out medially to the remaining facet joint. The ligament was thick. The dura was then exposed. The dura was in good repair. The L2 nerve was then traced with a curette out the L2/3 foramen and found to be adequately decompressed. The L3 nerve was traced with a curette around the L3 pedicle. The lateral recess was opened with a kerrison helping to further decompress the L3 nerve. The tubular retractor was then tilted to the contralateral side. The bovie was used to take down the soft tissue on the spinous process. The high speed nimo was used to take down the spinous process and then the contralateral lamina of L2. The kerrison rongeur was used to take down the remaining lamina to the point where the ligamentum flavum attached and the ligamentum flavum was taken down from L2 to L3. The kerrison rongeur was then used to reach across and take down the medial aspect of the contralateral L2/3 facet joint.The currete was used to trace the contralateral L2 nerve out the L2/3 foramen to make sure it was decompressed adequatesly and the L3 was traced around the L3 pedicle. The lateral recess was opened further with the kerrison to ensure the L3 is adequately decompressed. Wound is then irrigated copiously with saline and surgiflo is used to stop any bleeding. The tubular retractor is removed and A skin incision is made over the L3/4 level. This is confirmed under c-arm guidance. A series of dilators are passed and the tubular retractor is docked on the L3 lamina. A bovie is used to clear the soft tissue off the lamina and the L 3/4 facet joint. A high speed nimo is then used to perform the laminectomy and take down the medial aspect of the L 3/4 facet joint. A kerrison rongeure was then used to take down the remaining lamina and smooth the edged of the laminectomy up to the point where the ligamentum flavum attaches. Attention was then brought to the medial aspect of the facet joint. The remaining medial aspect of the superior and inferior aspect of the facet joint were taken down with the kerrison from the pedicle of L3 to L 4. The facet joint had significant hypertrophy. Attention was then brought to the Ligamentum Flavum. The ligament was taken down from the lamina of L3 to L4 and out medially to the remaining facet joint. The ligament was thick. The dura was then exposed. The dura was in good repair. The L3 nerve was then traced with a curette out the L3/4 foramen and found to be adequately decompressed. The L4 nerve was traced with a curette around the L4 pedicle. The lateral recess was opened with a kerrison helping to further decompress the L4 nerve. The tubular retractor was then tilted to the contralateral side. The bovie was used to take down the soft tissue on the spinous process. The high speed nimo was used to take down the spinous process and then the contralateral lamina of L3. The kerrison rongeur was used to take down the remaining lamina to the point where the ligamentum flavum attached and the ligamentum flavum was taken down from L3 to L4. The kerrison rongeur was then used to reach across and take down the medial aspect of the contralateral L3/4 facet joint.The currete was used to trace the contralateral L3 nerve out the L3/4 foramen to make sure it was decompressed adequatesly and the L4 was traced around the L4 pedicle. The lateral recess was opened further with the kerrison to ensure the L4 is adequately decompressed. Wound is then irrigated copiously with saline and surgiflo is used to stop any bleeding. The tubular retractor is removed and A skin incision is made over the L4/5 level. This is confirmed under c-arm guidance. A series of dilators are passed and the tubular retractor is docked on the L4 lamina. A bovie is used to clear the soft tissue off the lamina and the L 4/5 facet joint. A high speed nimo is then used to perform the laminectomy and take down the medial aspect of the L 4/5 facet joint. A kerrison rongeure was then used to take down the remaining lamina and smooth the edged of the laminectomy up to the point where the ligamentum flavum attaches. Attention was then brought to the medial aspect of the facet joint. The remaining medial aspect of the superior and inferior aspect of the facet joint were taken down with the kerrison from the pedicle of L4 to L 5. The facet joint had significant hypertrophy. Attention was then brought to the Ligamentum Flavum. The ligament was taken down from the lamina of L4 to L5 and out medially to the remaining facet joint. The ligament was thick. The dura was then exposed. The dura was in good repair. The L4 nerve was then traced with a curette out the L4/5 foramen and found to be adequately decompressed. The L5 nerve was traced with a curette around the L5 pedicle. The lateral recess was opened with a kerrison helping to further decompress the L5 nerve. The tubular retractor was then tilted to the contralateral side. The bovie was used to take down the soft tissue on the spinous process. The high speed nimo was used to take down the spinous process and then the contralateral lamina of L4. The kerrison rongeur was used to take down the remaining lamina to the point where the ligamentum flavum attached and the ligamentum flavum was taken down from L4 to L5. The kerrison rongeur was then used to reach across and take down the medial aspect of the contralateral L4/5 facet joint.The currete was used to trace the contralateral L4 nerve out the L4/5 foramen to make sure it was decompressed adequatesly and the L5 was traced around the L5 pedicle. The lateral recess was opened further with the kerrison to ensure the L5 is adequately decompressed. Wound is then irrigated copiously with saline and surgiflo is used to stop any bleeding. The tubular retractor is removed and the wound is closed with vicryl and monocryl suture. Glue is then used to protect the wound. A sterile dressing is then placed. Patient was then placed in the supine position and transferred to the PACU in stable condition.
[2021-08-16 08:50] VITALS: BP 117/83; PULSE 86; RESP 18; TEMP 36.2; O2SAT 100
[2021-08-16 08:55] VITALS: BP 140/95; PULSE 77; RESP 18; O2SAT 99
[2021-08-16 09:00] VITALS: BP 165/91; PULSE 74; RESP 15; TEMP 36.3; O2SAT 100
[2021-08-16 09:08] VITALS: BP 157/125; PULSE 73; RESP 17; TEMP 36.3; O2SAT 97
[2021-08-16] MEDS: HYDROcodone-acetaminophen 5-325 mg Tablet 1 TAB PO (09:31)
[2021-08-16 09:49] VITALS: BP 161/115; PULSE 73; RESP 17; TEMP 36.3; O2SAT 98
--- NOTE | 2021-08-16 13:15 | ANE.PACU2 ---
Inpatient post-anesthesia follow up: Airway intact: Yes Vital signs: Temperature 97.4 F Pulse Rate 73 Respiratory Rate 17 Blood Pressure 161/115 Pulse Oximetry 98 Oxygen Delivery Me thod Room Air Oxygen Flow Rate Fraction of Inspir ed Oxygen Hydration adequate: Yes Nausea and vomiting: No Pain level: 2 Mental status: Baseline
== END 2021-08-16 09:50 | disposition home or self-care (01) ==
PROVIDERS: PCP Family Medicine Adult Medicine; Visit Provider Orthopaedic Surgery
PROC: (CPT 63005; principal; 2021-08-16 07:00)
DX: M48.062 Spinal stenosis, lumbar region with neurogenic claudication (principal); I12.9 Hypertensive chronic kidney disease with stage 1 through stage 4 chronic kidney disease, or unspecified chronic kidney disease; N18.2 Chronic kidney disease, stage 2 (mild); F17.210 Nicotine dependence, cigarettes, uncomplicated
CPT/HCPCS: 63047; 63048 ×2; 36415; 72020; 76000; 80048; 85025; 87635; J0690; J1100; J2370; J2405; J2704; J2710; J3010; J3490; J7030

== ENCOUNTER 2021-10-10 09:35 | Outpatient (CLI) | payer MEDICAID, SELFPAY ==
--- NOTE | 2021-10-10 09:30 | MR_ITS ---
WS: [id number] MRI CERVICAL SPINE NONCONTRAST TECHNIQUE: Sagittal T1, T2 and STIR imaging. Axial T2, gradient, and fiesta imaging. CLINICAL INFORMATION: M54.2 - Cervicalgia COMPARISON: MRI FINDINGS: Straightening of the normal cervical lordosis. Small disc protrusions worse at C4-C5 C5-C6 with a sma ll annular fissure at C5-C6. C2-C3: Normal. C3-C4: Disc osteophyte complex with endplate ridging. Mild bilateral bony foraminal narrowing. Mild f acet arthropathy. C4-C5: Disc osteophyte complex with endplate ridging. Mild central canal stenosis. Moderate left face t arthropathy. Moderate left and mild right bony foraminal narrowing. C5-C6: Disc osteophyte complex with broad-based central protrusion. Moderate central canal stenosis a nd indentation on cervical cord. Moderate to severe bilateral bony foraminal narrowing. Mild facet ar thropathy. C6-C7: Disc osteophyte complex with endplate ridging. Mild bilateral bony foraminal narrowing. Mild f acet arthropathy. C7-T1: Mild left and no significant right foraminal narrowing. Spinal canal is patent. Visualized brain stem structures: Normal. Prevertebral soft tissues: Normal. MR/MR cervical spin wo con* [id number] IMPRESSION: 1. Straightening of the normal cervical lordosis. Cord signal is normal. 2. Central disc osteophyte protrusion C5-C6 with slight indentation on cervica l cord. Moderate central canal stenosis at this level. 3. Mild central canal stenosis C4-C5. 4. Moderate left C4-C5 and moderate to severe bilateral C5-C6 bony foraminal n arrowing. 5. Mild bilateral C6-C7 and left C7-T1 bony foraminal narrowing. 6. Moderate facet arthropathy is worse at left C4-C5. 7. Overall no significant changes since 2019
== END 2021-10-10 09:36 | disposition home or self-care (01) ==
LOC: RAD 09:38
PROVIDERS: PCP Family Medicine Adult Medicine; Visit Provider Orthopaedic Surgery
DX: M25.78 Osteophyte, vertebrae (principal); M50.222 Other cervical disc displacement at C5-C6 level; M48.02 Spinal stenosis, cervical region; M47.812 Spondylosis without myelopathy or radiculopathy, cervical region
CPT/HCPCS: 72141

== ENCOUNTER → 2021-10-17 09:45 | Outpatient (BNVA) | payer MEDICAID, SELFPAY | PROVIDERS: PCP Family Medicine Adult Medicine; Visit Provider Orthopaedic Surgery | DX: M47.892 Other spondylosis, cervical region (principal); M54.2 Cervicalgia | CPT/HCPCS: 72050 ==

== ENCOUNTER 2021-10-17 13:26 | Outpatient (CLI) | payer MEDICAID, SELFPAY | END 2021-10-17 13:27 | disposition home or self-care (01) | LOC: SPT 13:27 | PROVIDERS: PCP Family Medicine Adult Medicine; Visit Provider Orthopaedic Surgery | DX: Z46.89 Encounter for fitting and adjustment of other specified devices (principal); M47.22 Other spondylosis with radiculopathy, cervical region | CPT/HCPCS: 97760; L0174 ==

== ENCOUNTER → 2021-11-13 10:48 | Outpatient (BNVA) | payer MEDICAID, SELFPAY | PROVIDERS: PCP Family Medicine Adult Medicine; Visit Provider Orthopaedic Surgery | DX: Z20.822 Contact with and (suspected) exposure to COVID-19 (principal); M47.22 Other spondylosis with radiculopathy, cervical region; M54.2 Cervicalgia | CPT/HCPCS: 87635 ==

== ENCOUNTER 2021-11-15 05:51 | Day surgery (SDC) | payer MEDICAID, SELFPAY ==
[2021-11-14 13:17] VITALS: BMI 26.4
[2021-11-15 06:19] VITALS: BP 93/61; PULSE 92; RESP 18; TEMP 36.4; O2SAT 95
[2021-11-15] MEDS: sodium chloride 0.9% 1,000 ML 30 ML IV (06:44)
--- NOTE | 2021-11-15 06:50 | PC.NURSE ---
[PT PRESENTED WITH BP OF87/64. PT STATED HAS BEEN DRINKING BEER FROM NOON YESTERDAY UNTIL SOMEWHERE BETWEEN MIDNIGHT AND TWO THIS MORNING. BP RANGES FROM 69/50 TO 93/61. DR BRYAN CONSULTED, IV STARTED AND BOLUS OF NS RUNNING. DR BRYAN SPOKE WITH PT AND DISCUSSED PLAN OF CARE.
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
--- NOTE | 2021-11-15 06:58 | PC.NURSE ---
PT STATED HE TOOK LISINOPRIL DOSE AT 0500 YESTERDAY, THEN A HALP DOSE LISINOPRIL AT 0900, THEN FELT HEART RACING SO HE TOOK ANOTHER HALF DOSE AT 1500. DR BRYAN NOTIFIED
--- NOTE | 2021-11-15 07:00 | PC.NURSE ---
pt has been in trendelenburg during bolus. pt talking and laughing
[2021-11-15] MEDS: sodium chloride 0.9% 1,000 ML 999 ML IV (07:20)
--- NOTE | 2021-11-15 07:30 | PC.NURSE ---
BP 95/63 AFTER LITER BOLUS NS. SECOND LITER STARTED FOR NS BOLUS. SURGERY CANCELED PER DR HEADLEY AND DR BRYAN. PT INFORMED AND HE REFUSED TO LET IV FLUIDS CONTINUE. PT STATED HE WOULD RIP OUT THE IV HIMSELF IF I DIDN'T REMOVE IT SO HE COULD GO SMOKE. I DC'D IV AND PT IS LEAVING OPS. HIS RIDE IS ON THE WAY, WILL BE HERE IN AN HOUR. PT STATED HE WILL WAIT FOR HER OUTSIDE AND SMOKE.
[2021-11-15 07:33] LABS: Basophils # 0.1 10^3/uL (0.0-0.1); Basophils % 0.8 %; Eosinophils # 0.4 10^3/uL (0.0-0.8); Eosinophils % 6.2 %; Hematocrit 37.2 % (42.0-52.0); Hemoglobin 12.1 g/dL (11.7-16.6); Lymphocytes # 2.5 10^3/uL (0.8-4.8); Mean Corpuscular HGB Conc 32.5 g/dL (30.0-36.0); Mean Corpuscular Hemoglobin 29.9 pg (28.0-34.0); Mean Corpuscular Volume 91.9 fl (80-94); Mean Platelet Volume 8.7 fL (7.4-10.4); Monocytes # 1.1 10^3/uL (0.2-0.9); Monocytes % 17.5 %; Neutrophils # 2.41 10^3/uL (1.8-7.7); Neutrophils % 37.2 %; Nucleated Red Blood Cells % 0 %; Platelet Count 299 10^3/cmm (130-400); Red Blood Count 4.05 10^6/uL (4.1-5.3); White Blood Count 6.5 10^3/uL (4.0-10.0)
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
[2021-11-15 07:40] LABS: Alanine Aminotransferase 9 U/L (0-41); Alkaline Phosphatase 50 IU/L (40-130); Anion Gap 17.5 (5-19); Aspartate Amino Transferase 16 U/L (0-40); Blood Urea Nitrogen 8 mg/dL (6-20); Calcium 8.3 mg/dL (8.5-10.5); Carbon Dioxide 19 mmol/L (22-29); Chloride 106 mmol/L (98-107); Globulin 2.5 g/dL (1.3-4.6); Glomerular Filtration Rate 69.8 mL/min (90-130); Glucose 92 mg/dL (65-115); Osmolality Calculated 284 mOsm/kg (285-295); Potassium 4.5 mmol/L (3.5-5.1); Sodium 138 mmol/L (136-145); Total Bilirubin 0.2 mg/dL (0.15-1.2); Total Protein 6.5 g/dL (6.6-8.7)
== END 2021-11-15 07:42 | disposition home or self-care (01) ==
LOC: OR 05:52
PROVIDERS: PCP Family Medicine Adult Medicine; Visit Provider Orthopaedic Surgery
PROC: 0RB30ZZ Excision of Cervical Vertebral Disc, Open Approach (ICD-10-PCS; CPT 22551; principal; 2021-11-15 07:00)
DX: M47.22 Other spondylosis with radiculopathy, cervical region (principal); Z53.8 Procedure and treatment not carried out for other reasons
CPT/HCPCS: 36415; 80053; 85025; 96365; J0330; J1100; J2250; J2370; J2405; J2704; J3010; J3490; J7030; P9041

== ENCOUNTER → 2022-01-12 08:10 | Day surgery (SDC) | payer MEDICAID, SELFPAY ==
[2022-01-11 12:27] VITALS: BMI 26.4
[2022-01-12] VITALS (21 sets, daily range): BP systolic 129–170; BP diastolic 76–108; PULSE 74–103; RESP 12–18; TEMP 36.6; O2SAT 91–98
--- NOTE | 2022-01-12 | XR_ITS ---
WS: [id number] C-ARM RADIOGRAPHS CERVICAL SPINE; 3 IMAGES HISTORY: Cervical spondylosis COMPARISON: None available. Intraoperative imaging during anterior cervical fusion. Fusion plate extends from C4 through C7. Inte rbody spacers at C4-5, C5-6 and C6-7. The alignment appears satisfactory. Patient is intubated. XR/XR cervical spine 3V* [id number] IMPRESSION: Intraoperative imaging during anterior cervical fusion with interbody spacers f rom C4 to C7.
--- NOTE | 2022-01-12 | SCC_ITS ---
Procedure done: 1. Anterior diskectomy C4/5 2. Anterior diskectomy C5/6 3. Anterior discectomy C6/7 4. Insertion of cage C4/5 5. Insertion of cage C5/6 6. Insertion of Cage C6/7 7. Instrumentation with anterior plate from C4-C7 8. Use of allograft 24.2 seconds of fluoroscopic guidance, for a cumulative dose of 2.25 mGy, was provided to Dr. Pressley by the radiology department. C-arm images of the cervical spine were saved for the patient's permanent record. LING
[2022-01-12] MEDS: sodium chloride 0.9% 1,000 ML 30 ML IV (08:36)
--- NOTE | 2022-01-12 10:32 | P.ANESUD_ITS ---
Pre-Anesthetic Update Pre-Anesthetic Assessment: Date of Surgery/Procedure: 01/12/22 Preop Ledy gnosis: Cervical Spondylosis w radiculopathy Proposed Procedure: Operation Date: 01/12/22 11:30 Proposed Procedures p Anterior Cervical Discectomy & Fusion C4/5,C5/6,C6/7--[id number]/m47.22(Not Applicable) - Jeovany Pressley, DO Any changes to Pre-Anesthetic Assessment?: No Last Intake: Intake Last Liquid Date 01/11/22 Last Liquid Time 23:30 Last Solid Date 01/11/22 Last Solid Time 16:00 Vitals: Temperature 97.9 F 01/12/22 08:31 Temperature Source Temporal Artery S can 01/12/22 08:31 Pulse Rate 103 H 01/12/22 08:31 Pulse Rhythm 01/12/22 08:32 Respiratory Rate 16 01/12/22 08:31 Blood Pressure 146/97 01/12/22 08:31 Blood Pressure Coral n 113 01/12/22 08:31 Pulse Oximetry 95 01/12/22 08:31 Oxygen Delivery Me thod 01/12/22 08:32 Exam: Pre-Anes Outpt Exam: alert, oriented x 3, clear to auscultation bilaterally and regular rate & rhythm Cardiac Studies: No Data to Display
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
--- NOTE | 2022-01-12 15:22 | PM.OP ---
Operative Report Date of procedure: January 12, 2022 Pre-op diagnosis: Preop Diagnosis Cervical Spondylosis w radiculopathy Post-op diagnosis: same Procedure done: 1. Anterior diskectomy C4/5 2. Anterior diskectomy C5/6 3. Anterior discectomy C6/7 4. Insertion of cage C4/5 5. Insertion of cage C5/6 6. Insertion of Cage C6/7 7. Instrumentation with anterior plate from C4-C7 8. Use of allograft Surgeon: Jeovany Pressley Estimated blood loss (mL): 25 Procedure: 1. Anterior diskectomy C4/5 2. Anterior diskectomy C5/6 3. Anterior discectomy C6/7 4. Insertion of cage C4/5 5. Insertion of cage C5/6 6. Insertion of Cage C6/7 7. Instrumentation with anterior plate from C4-C7 8. Use of allograft The patient was taken to the operating room, where he underwent general endotracheal anesthesia without complications. He was then positioned supine on the operating table, and all areas of impingement were well padded. The arms were carefully padded and tucked at his sides. A roll was placed between the shoulder blades.. An x-ray was done to determine the appropriate level for the skin incision. The entire neck was then sterilely prepped and draped in the usual fashion. Neuromonitoring was attached prior to prepping. A transverse skin incision was made and carried down to the platysma muscle. This was then split in line with its fibers. Blunt dissection was carried down medial to the carotid sheath and lateral to the trachea and esophagus until the anterior cervical spine was visualized. A needle was placed into a disc and an x-ray was done to determine its location. The longus colli muscles were then elevated bilaterally with the electrocautery unit. Self-retaining retractors were placed deep to the longus colli muscle. Attention was brought to the C4/5 level that was confirmed on x-ray. A caspar pin was placed into the C4 vertebrae and the C5 vertebrae. The disk space was then distracted. The microscope was then brought in. A radical anterior discectomies were performed at C4/5. This included complete removal of the anterior annulus, nucleus, and posterior annulus. The posterior longitudinal ligament was removed as were the posterior osteophytes. Foraminotomies were then accomplished bilaterally. This was done using a high speed nimo, kerrison rongeurs and curretes Once all of this was accomplished, the curved currette was used to check for any residual compression. The central canal was wide open as were the foramen. A high-speed bur was used to remove the cartilaginous endplates above and below the interspace. Bleeding cancellous bone was exposed. The disc space were measured and appropriate size cage were placed sterilely onto the field. Allograft graft was packed into the cages. The cage was then placed and there was good juxtaposition against the bleeding decorticated surfaces and good distraction of each interspace. Attention was brought to the next interspace. The [place] pins were removed. Bone wax was used to prevent any bleeding from occurring at the pin sites. Attention was brought to the C5/6 level that was confirmed on x-ray. A caspar pin was placed into the C5 vertebrae and the C6 vertebrae. The disk space was then distracted. The microscope was then brought in. A radical anterior discectomies were performed at C5/6. This included complete removal of the anterior annulus, nucleus, and posterior annulus. The posterior longitudinal ligament was removed as were the posterior osteophytes. Foraminotomies were then accomplished bilaterally. This was done using a high speed nimo, kerr[place] rongeurs and curretes Once all of this was accomplished, the curved currette was used to check for any residual compression. The central canal was wide open as were the foramen. A high-speed bur was used to remove the cartilaginous endplates above and below the interspace. Bleeding cancellous bone was exposed. The disc space were measured and appropriate size cage were placed sterilely onto the field. Allograft graft was packed into the cages. The cage was then placed and there was good juxtaposition against the bleeding decorticated surfaces and good distraction of each interspace. Attention was brought to the next interspace. The [place] pins were removed. Bone wax was used to prevent any bleeding from occurring at the pin sites. Attention was brought to the C6/7 level that was confirmed on x-ray. A caspar pin was placed into the C6 vertebrae and the C7 vertebrae. The disk space was then distracted. The microscope was then brought in. A radical anterior discectomies were performed at C6/7. This included complete removal of the anterior annulus, nucleus, and posterior annulus. The posterior longitudinal ligament was removed as were the posterior osteophytes. Foraminotomies were then accomplished bilaterally. This was done using a high speed nimo, [place]err[place] rongeurs and curretes Once all of this was accomplished, the curved currette was used to check for any residual compression. The central canal was wide open as were the foramen. A high-speed bur was used to remove the cartilaginous endplates above and below the interspace. Bleeding cancellous bone was exposed. The disc space were measured and appropriate size cage were placed sterilely onto the field. Allograft graft was packed into the cages. The cage was then placed and there was good juxtaposition against the bleeding decorticated surfaces and good distraction of each interspace. Attention was brought to the next interspace. The [place] pins were removed. Bone wax was used to prevent any bleeding from occurring at the pin sites. The appropriate size anterior cervical locking plate was chosen and bent into gentle lordosis. Two screws were then placed into each of the vertebral bodies at C4, C5, C6, and C7 there was excellent purchase. A final x-ray was done confirming good position of the hardware and Cages. The locking screws were then applied, also with excellent purchase. Following a final copious irrigation, there was good hemostasis and no dural leaks. The carotid pulse was strong. The wounds were then closed in layers using 2-0 Vicryl suture for the platysma muscle, 2-0 Vicryl suture for the subcutaneous tissue, and 4-0 monocryl suture in a subcuticular skin closure. Glue was placed followed by application of a sterile dressing. The drain was hooked to bulb suction. A soft collar was applied. The patient was then carefully returned to the supine position on his hospital bed where he was reversed and extubated and taken to the recovery room having tolerated the procedure well.
--- NOTE | 2022-01-12 15:24 | P.PCN_ITS ---
PACU note Narrative: VSS, Good respiratory effort, report to PORCELAIN FINISHER
--- NOTE | 2022-01-12 15:24 | PM.PACU ---
PACU note Narrative: VSS, Good respiratory effort, report to DECORATING MACHINE TENDER
--- NOTE | 2022-01-12 15:38 | SUR.PHASEI ---
15:18 RECEIVED PATIENT FROM OR STAFF. NSR ON MONITOR. AIRWAY PATENT.GOOD CHEST RISE AND FALL.
[2022-01-12] MEDS: labetalol 5 mg/mL SDV 20mL IVP ×2 (15:47→16:05)
--- NOTE | 2022-01-12 15:54 | SUR.PHASEI ---
15:50 ORAL AIRWAY REMOVED. AIRWAY SUCTIONED.SMALL AMOUNT OF MUCUS RETURN.. PATIENT VENTILATING WELL.
--- NOTE | 2022-01-12 16:19 | SUR.PHASEI ---
16:15 PATIENT RESPONDS TO VERBAL COMMANDS. ROM AND SENSATION ALL 4 EXTREMITIES. TOLERATING ICE CHIPS.
--- NOTE | 2022-01-12 16:27 | ANE.PACU2 ---
Inpatient post-anesthesia follow up: Airway intact: Yes Vital signs: Temperature 97.8 F Pulse Rate 82 Respiratory Rate 16 Blood Pressure 141/90 Pulse Oximetry 97 Oxygen Delivery Me thod Room Air Oxygen Flow Rate 8 Fraction of Inspir ed Oxygen Hydration adequate: Yes Nausea and vomiting: No Pain level: 2 Mental status: Baseline
== END | disposition home or self-care (01) ==
PROVIDERS: PCP Family Medicine Adult Medicine; Visit Provider Orthopaedic Surgery
PROC: 0RB30ZZ Excision of Cervical Vertebral Disc, Open Approach (ICD-10-PCS; CPT 22551; principal; 2022-01-12 11:30)
DX: M47.22 Other spondylosis with radiculopathy, cervical region (principal); J43.9 Emphysema, unspecified; I12.9 Hypertensive chronic kidney disease with stage 1 through stage 4 chronic kidney disease, or unspecified chronic kidney disease; N18.2 Chronic kidney disease, stage 2 (mild); F17.210 Nicotine dependence, cigarettes, uncomplicated
CPT/HCPCS: 20930; 22551; 22552 ×2; 22845; 22853 ×3; 72040; 76000; C1713; C9359; J1170; J2250; J2405; J2704; J3010; J3490; J7030

== ENCOUNTER → 2022-01-30 13:01 | Outpatient (BNVA) | payer MEDICAID, SELFPAY | PROVIDERS: PCP Family Medicine Adult Medicine; Visit Provider Orthopaedic Surgery | DX: Z47.89 Encounter for other orthopedic aftercare (principal); Z98.890 Other specified postprocedural states | CPT/HCPCS: 72040; 99024 ==

== ENCOUNTER 2022-02-20 17:42 | Emergency (ER) | payer MEDICAID, SELFPAY ==
[2022-02-20 18:17] VITALS: BP 118/83; PULSE 92; RESP 16; TEMP 36.7; O2SAT 96; BMI 22.4
--- NOTE | 2022-02-20 18:56 | ECG_ITS ---
[facility] Test Date: 2022-02-20 Pat Name: Hayes Cartagena Department: Room: Gender: Male Corporate Sales Trainer: : 1965 Requested By: Lissett Joshua Order Number: [id number] Javi MD: Nomi Chavarria M.D. Measurements Intervals [place] Rate: 89 P: 69 NE: 152 QRS: 81 QRSD: 101 T: 64 QT: 365 QTc: 445 Interpretive Statements SINUS RHYTHM Compared to ECG 06/21/2021 10:25:23 Sinus arrhythmia no longer present Electronically Signed On 02-21-2022 0:03:11 CDT by Nomi Chavarria M.D. [email or web address] [id number]
== END 2022-02-20 21:11 | disposition left against medical advice (07) ==
PROVIDERS: Emergency Provider Family Medicine; PCP Family Medicine Adult Medicine
DX: Z53.21 Procedure and treatment not carried out due to patient leaving prior to being seen by health care provider (principal); R06.02 Shortness of breath; R07.89 Other chest pain
CPT/HCPCS: 93005; 99284

== ENCOUNTER → 2023-03-05 10:35 | Outpatient (BNVA) | payer MEDICAID, SELFPAY | PROVIDERS: PCP Family Medicine Adult Medicine; Visit Provider Physician Assistant | DX: M47.22 Other spondylosis with radiculopathy, cervical region (principal); M54.2 Cervicalgia | CPT/HCPCS: 72050; 99214 ==

== ENCOUNTER 2023-03-25 11:42 | Outpatient (CLI) | payer MEDICAID, SELFPAY ==
--- NOTE | 2023-03-25 11:45 | MR_ITS ---
WS: [id number] MRI CERVICAL SPINE NONCONTRAST TECHNIQUE: Sagittal T1, T2 and STIR imaging. Axial T2, gradient, and fiesta imaging. CLINICAL INFORMATION: Continued pain COMPARISON: None. FINDINGS: Mild cervical curve. Postoperative changes ACDF with interbody fusion C4-C7 new compared to previous. Cord signal is normal. Spinal canal stenosis has improved at the fusion levels. Mild residual centra l canal stenosis C3-C4 similar to previous. No high-grade central canal narrowing. C2-C3: Mild facet arthropathy. Mild RIGHT greater than LEFT foraminal narrowing. Spinal canal is pizarro nt. C3-C4: Mild disc bulging with osteophytic ridging. Mild central canal stenosis. Moderate facet arthro emmanuel. Slight retrolisthesis C3 on C4. Moderate LEFT greater than RIGHT bony foraminal narrowing. C4-C5: Postoperative changes ACDF mild LEFT greater than RIGHT bony foraminal narrowing. Mild facet a rthropathy. Spinal canal is patent. C5-C6: Postoperative changes ACDF. Mild residual central canal stenosis improved compared to previous . Moderate bilateral bony foraminal narrowing. Moderate facet arthropathy. C6-C7: Postoperative changes ACDF. Moderate RIGHT greater than LEFT bony foraminal narrowing. Spinal canal is patent. C7-T1: Mild bilateral bony foraminal narrowing. Spinal canal is patent. Visualized brain stem structures: Normal. Prevertebral soft tissues: Normal. MR/MR cervical spin wo con* [id number] IMPRESSION: 1. Postoperative changes ACDF C4-C7 is new compared to previous. 2. Mild central canal stenosis C3-C4 with slight retrolisthesis and mild disc bulging appears stable. 3. No high-grade central canal stenosis. 4. Cord signal is normal. 5. Multilevel mild to moderate bony foraminal narrowing described above worse at bilateral C3-C4, bilateral C5-C6, and bilateral C6-C7.
== END 2023-03-25 11:43 | disposition home or self-care (01) ==
PROVIDERS: PCP Family Medicine Adult Medicine; Visit Provider Physician Assistant
DX: M47.22 Other spondylosis with radiculopathy, cervical region (principal); Z98.1 Arthrodesis status; M48.02 Spinal stenosis, cervical region; M43.12 Spondylolisthesis, cervical region; M50.31 Other cervical disc degeneration, high cervical region
CPT/HCPCS: 72141

== ENCOUNTER → 2023-07-24 11:25 | Outpatient (BNVA) | payer MEDICAID, SELFPAY | PROVIDERS: PCP Family Medicine Adult Medicine; Visit Provider Family Medicine Adult Medicine | DX: R07.89 Other chest pain (principal) | CPT/HCPCS: 71046 ==

== ENCOUNTER → 2023-11-21 12:23 | Outpatient (BNVA) | payer MEDICAID, SELFPAY | PROVIDERS: PCP Family Medicine Adult Medicine; Referring Provider Family Medicine Adult Medicine; Visit Provider Internal Medicine Pulmonary Disease | DX: J93.9 Pneumothorax, unspecified (principal); F17.210 Nicotine dependence, cigarettes, uncomplicated; J43.9 Emphysema, unspecified; Z12.2 Encounter for screening for malignant neoplasm of respiratory organs; F10.10 Alcohol abuse, uncomplicated; F19.10 Other psychoactive substance abuse, uncomplicated | CPT/HCPCS: 71046; 99204 ==

== ENCOUNTER → 2024-11-18 13:49 | Outpatient (BNVA) | payer MEDICAID, SELFPAY | PROVIDERS: PCP Family Medicine Adult Medicine; Visit Provider Family Medicine | DX: I10 Essential (primary) hypertension (principal); N40.0 Benign prostatic hyperplasia without lower urinary tract symptoms | CPT/HCPCS: 80053; 80061; 84153; 84439; 84443; 85025 ==

== ENCOUNTER 2025-03-06 16:31 | Emergency (ER) | payer MEDICAID, SELFPAY ==
[2025-03-06 16:36] VITALS: BP 118/74; PULSE 101; RESP 18; TEMP 36.7; O2SAT 93
[2025-03-06 17:04] VITALS: BP 112/97; PULSE 97; RESP 16; O2SAT 94
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
--- NOTE | 2025-03-06 17:05 | XRR_ITS ---
PROCEDURE INFORMATION: Exam: XR Chest Exam date and time: 03/06/2025 5:07 PM Age: 59 years old Clinical indication: Other: Dizziness/weakness; Additional info: Dizzy/weak TECHNIQUE: Imaging protocol: Radiologic exam of the chest. Views: 1 view. COMPARISON: CR XR chest 2V* [id number] 11/21/2023 1:12 PM FINDINGS: Lungs: No pulmonary consolidation. Pulmonary hyperinflation. Pleural spaces: No pleural effusion or pneumothorax. Heart/Mediastinum: Heart size is within normal limits. Bones/joints: No acute osseous abnormalities are seen. XR/XR chest 1V portable [id number] IMPRESSION: No acute cardiopulmonary disease.
--- NOTE | 2025-03-06 17:05 | ECG_ITS ---
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 Measurements Intervals [place] Rate: 94 P: 84 NH: 171 QRS: 95 QRSD: 105 T: 80 QT: 359 QTc: 451 Interpretive Statements SINUS RHYTHM POSSIBLE LEFT ATRIAL ENLARGEMENT [-0.1mV P-WAVE IN V1/V2] BORDERLINE RIGHT AXIS DEVIATION [QRS AXIS > 90] Nonspecific ST changes. Compared to ECG 02/20/2022 18:26:05 ST (T wave) deviation now present Electronically Signed On 03-07-2025 19:22:31 CDT by Susan Fagan M.D. [email or web address]
[2025-03-06 17:11] LABS: Basophils # 0.1 10^3/uL (0.0-0.1); Basophils % 1.5 %; Eosinophils # 0.9 10^3/uL (0.0-0.8); Hematocrit 37.4 % (37-53); Lymphocytes # 1.9 10^3/uL (0.8-4.8); Lymphocytes % 26.1 %; Mean Corpuscular HGB Conc 34.5 g/dL (30-55); Mean Corpuscular Hemoglobin 29.9 pg (27-33); Mean Corpuscular Volume 86.6 fl (82-101); Mean Platelet Volume 8.7 fL (7.4-10.4); Monocytes # 0.9 10^3/uL (0.2-0.9); Monocytes % 12.2 %; Neutrophils # 3.47 10^3/uL (1.8-7.7); Neutrophils % 48.1 %; Nucleated Red Blood Cells % 0 %; Platelet Count 427 10^3/cmm (157-399); Red Blood Count 4.32 10^6/uL (3.85-5.65); Red Cell Distribution Width 15.5 % (12.1-15.1); White Blood Count 7.23 10^3/uL (3.29-11.43)
[2025-03-06 17:21] LABS: Alanine Aminotransferase 19 U/L (0-41); Albumin Level 4.4 g/dL (3.5-5.2); Alkaline Phosphatase 102 U/L (40-130); Aspartate Amino Transferase 37 U/L (0-40); Blood Urea Nitrogen 9 mg/dL (6-20); Calcium 9.1 mg/dL (8.5-10.5); Carbon Dioxide 17 mmol/L (22-29); Chloride 97 mmol/L (98-107); Glucose 79 mg/dL (65-115); Osmolality Calculated 274 mOsm/kg (285-295); Sodium 133 mmol/L (136-145); Total Bilirubin 0.4 mg/dL (0.15-1.2); Total Protein 7.4 g/dL (6.6-8.7)
[2025-03-06 17:25] LABS: Anion Gap 23.6 (5-19); Potassium 4.6 mmol/L (3.5-5.1)
[2025-03-06] MEDS: sodium chloride 0.9% 1,000 ML 999 ML IV (17:35)
[2025-03-06 17:40] LABS: Bilirubin Urine Negative (Negative); Blood Urine Negative (Negative); Glucose Urine UA Negative (Normal); Ketones Urine Negative (Negative); Leukocyte Esterase Urine Negative (Negative); Nitrate Urine Negative (Negative); Protein Urine Trace (Negative); Specific Gravity, Urine 1.012 (1.005-1.030); Urine Appearance Clear (CLEAR); Urine Color Yellow (Yellow); pH Urine 5.5 (5-7)
[2025-03-06 17:44] LABS: Add Urine Microscopic? YES; Bacteria Urine None Seen /hpf; Hyaline Casts Urine 10.73 /lpf; RBC Urine 0-2 /hpf (0-2); Squamous Epithelial Cell Urine 0-5 /hpf (0-5); WBC Urine 0-5 /hpf (0-5)
[2025-03-06 17:47] VITALS: PULSE 113; RESP 16; O2SAT 95
[2025-03-06 17:57] LABS: Troponin(5th) Baseline 15 ng/L (0-15)
[2025-03-06 18:02] VITALS: BP 125/79; PULSE 117; RESP 16; O2SAT 93
[2025-03-06 18:18] VITALS: BP 125/79; PULSE 110; RESP 16; O2SAT 94
[2025-03-06 19:13] LABS: Troponin 5 2HR 12.74 ng/L (0-15); Troponin 5 2HR Delta -2.26 ABS# (0-10)
--- NOTE | 2025-03-09 09:23 | DCPLANNER ---
Message sent to Primary to follow up
== END 2025-03-06 18:18 | disposition home or self-care (01) ==
PROVIDERS: Emergency Provider Physician Assistant; PCP Family Medicine Adult Medicine
DX: F10.10 Alcohol abuse, uncomplicated (principal); R53.1 Weakness; F17.210 Nicotine dependence, cigarettes, uncomplicated; I12.9 Hypertensive chronic kidney disease with stage 1 through stage 4 chronic kidney disease, or unspecified chronic kidney disease; N18.2 Chronic kidney disease, stage 2 (mild)
CPT/HCPCS: 71045; 80053; 81001; 84484; 85025; 93005; 96360; 99285; J7030